=== PATIENT | female | born 1940 | race Caucasian/White ===

== ENCOUNTER 2019-12-27 16:58 | Inpatient (IN) | payer MEDICARE, BC ==
[2019-12-27] MEDS ORDERED: Senokot S 8.6-50 MG TAB PO PRN (20:03)
[2019-12-27] MEDS ORDERED: Calcium Carbonate 500 MG ChewTAB PO PRN (20:03)
[2019-12-27] MEDS: Sodium Chloride 1 GM TAB PO SCH (21:17)
[2019-12-27] MEDS: Sotalol HCl 80 MG TAB PO SCH (21:17)
[2019-12-27] MEDS: Atorvastatin Calcium 20 MG TAB PO SCH ×2 (21:17→21:18)
[2019-12-27] MEDS: oxyCODONE 5 MG TAB PO SCH (21:18)
[2019-12-27] MEDS: Magnesium Oxide 400 MG TAB PO SCH (21:18)
[2019-12-27] MEDS: Heparin 5,000 UNITS/ML VIAL SC SCH (21:28)
[2019-12-28] MEDS: oxyCODONE 5 MG TAB PO SCH ×4 (01:44→12:41)
[2019-12-28] MEDS: Heparin 5,000 UNITS/ML VIAL SC SCH ×3 (05:39→22:53)
[2019-12-28 06:37] LABS: #Basophils 0.1 thou/uL (0.0-0.2); #Eosinphils 0.1 thou/uL (0.0-0.7); #Lymphocytes 0.8 thou/uL (1.20-3.40); #Monocytes 0.5 thou/uL (0.11-0.59); #Neutrophils 2.8 thou/uL (1.40-6.50); %Basophils 1.3 % (0.0-1.0); %Eosinophils 3.3 % (0.0-10.0); %Lymphocytes 19.5 % (21.0-51.0); %Monocytes 11.7 % (0.0-10.0); %Neutrophils 64.2 % (42.0-75.0); Hemoglobin 10.7 g/dL (12.0-16.0); Mean Corpuscular HGB CONC 33.3 g/dL (32.0-36.0); Mean Corpuscular Hemoglobin 29.7 pg (27.0-31.0); Mean Corpuscular Volume 89.3 fL (78.0-98.0); Mean Platelet Volume 5.1 fL (7.4-10.4); Platelet Count 266 thou/uL (130-400); RBC Distribution Width 14.6 % (11.5-14.5); Red Blood Cell (RBC) Count 3.61 mill/uL (4.20-5.40); White Blood Cell (WBC) Count 4.3 thou/uL (4.8-10.8)
[2019-12-28 06:51] LABS: ALT (SGPT) 13 U/L (8-55); AST (SGOT) 15 U/L (5-34); Albumin 3.2 g/dL (3.4-4.8); Alkaline Phosphatase 80 U/L (40-110); Anion Gap 14 mmol/L (10-20); BUN (Urea Nitrogen) 9 mg/dL (9.8-20.1); Bilirubin, Total 1.1 mg/dL (0.2-1.2); Calc. Creatinine Clearance 59 mL/min (70-130); Calcium 8.7 mg/dL (7.8-10.44); Carbon Dioxide 26 mmol/L (23-31); Chloride 98 mmol/L (98-107); Estimated GFR-MDRD Greater than 90; Globulin 2.8 g/dL (2.4-3.5); Glucose 99 mg/dL (83-110); Potassium 4.3 mmol/L (3.5-5.1); Sodium 134 mmol/L (136-145)
[2019-12-28] MEDS: Magnesium Oxide 400 MG TAB PO SCH ×2 (08:15→22:32)
[2019-12-28] MEDS: Sodium Chloride 1 GM TAB PO SCH ×2 (08:15→22:26)
[2019-12-28] MEDS: Sotalol HCl 80 MG TAB PO SCH ×2 (08:15→22:28)
[2019-12-28] MEDS: Aspirin 81 mg Enteric Coated Tablet PO SCH (08:15)
[2019-12-28] MEDS: Lidocaine 5% Patch TD SCH (08:16)
[2019-12-28] MEDS: Citalopram 20 MG TAB PO SCH (08:16)
[2019-12-28] MEDS: Digoxin 0.125 MG TAB PO SCH (08:17)
[2019-12-28 11:47] LABS: Bilirubin Negative (Negative); Blood, Urine Negative (Negative); Clarity Clear (Clear); Glucose, Urine (Dipstick) Negative (Negative); Leukocyte Trace (Negative); Nitrite Negative (Negative); Protein, Urine (Dipstick) Negative (Neg-Trace); Urobilinogen 0.2 mg/dL (Less than 2)
[2019-12-28 11:58] LABS: Bacteria/HPF None Seen HPF (None Seen); RBC/HPF 0-3 HPF (0-3); Squamous Epithelial 0-3 HPF (0-3)
--- NOTE | 2019-12-28 15:34 | HP ---
HISTORY OF PRESENT ILLNESS: Ms. Holliday is a very pleasant 79-year-old white female, who fell and had a C1-C2 fracture. She was placed in a neck brace and was doing well for several weeks until she fell again. This time she was transferred to [facility] for C1-C2 posterior lamination which was done on 12/19/2019. Postoperatively, she did very well, but she has had some problems with pain management. She is now transferred to [facility] for physical therapy and occupational therapy. The patient states she normally takes oxycodone 10 mg 2 to 3 to 4 times a day for her terrible arthritis and is followed by Dr. Foster Arndt. She is also followed by Dr. Hatfield and Dr. Gray. Since she has been in the hospital, her pain has not been well controlled because she gets 5 mg two or three times a day. She is also having some lightning type strikes that are going down her neck, which is either neurological neuropathy type pain or possible muscle spasms. We will try some gabapentin and possibly a muscle relaxer. PAST MEDICAL HISTORY: Positive for, 1. Hypertension. 2. Hyperlipidemia. 3. Coronary artery disease. 4. Peripheral arterial disease. 5. Atrial fibrillation. 6. TIA in May of 2019. 7. Anemia, which is blood loss anemia from surgery. 8. Metabolic encephalopathy. 9. Urinary tract infection. 10. Pain management. PAST SURGICAL HISTORY: Positive for, 1. CABG x2 in 1983. 2. Pacemaker in 2010. 3. Total right knee in 2010. 4. Total left knee in 2011. 5. Bilateral cataracts. 6. C1-C2 laminectomy. SOCIAL HISTORY: Reveals the patient is . She does not smoke and does not drink alcohol. She is retired from working at the medical school at [employer] and . FAMILY HISTORY: Reveals the patient's father at age 49 of some type of accident. The patient's mother at age 69 of coronary artery disease. The patient has 4 brothers who have of heart disease and stroke, and she had 3 sisters and has only one sister left, two have of stroke and heart disease. Family history is positive for heart disease and stroke. PRESENT MEDICATIONS: Reveals the patient is on, 1. Aspirin 81 mg a day. 2. Heparin 5000 units subcu q.8. 3. Diltiazem 60 mg q.8 hours. 4. Sotalol 80 mg b.i.d. 5. Digoxin 0.125 q.a.m. 6. Atorvastatin 20 mg at bedtime. 7. Sodium chloride 2 g twice a day. 8. Celexa 40 mg daily. 9. Pantoprazole 40 mg every day. 10. Mag-Ox 200 mg b.i.d. 11. Lidoderm patch every 12 hours. 12. Oxycodone 5 mg q.4 hours, but the patient typically takes 10 mg 2 to 3 times a day. 13. Senokot-S 2 pills twice a day. ALLERGIES: THE PATIENT IS ALLERGIC TO PENICILLIN, SULFA, AND LINEZOLID. REVIEW OF SYSTEMS: CONSTITUTIONAL: Reveals the patient denies fever or chills, but just has weakness. SKIN: The patient denies skin problems. RESPIRATORY: The patient denies respiratory problems including shortness of breath, cough, cold, congestion, or dyspnea on exertion. CARDIOLOGY: The patient denies chest pain, dyspnea on exertion, edema, claudication, or palpitations. GI: The patient denies GI problems including nausea, vomiting, indigestion, but she does have a poor diet. She denies any constipation or diarrhea or bloody stools. : The patient denies dysuria, hematuria, or incontinence, but she has had a urinary tract infection recently and she has finished all her IV antibiotics. MUSCULOSKELETAL: She does have some musculoskeletal neck pain that aggravates her and possibly some neuropathy type pain also. Her neck is stiff, but it is in a C-collar. PSYCHIATRIC: The patient has some depression, has been on Celexa, which has worked well for her in the past. Her memory occasionally is poor, but on the average is excellent. The patient has had some anemia. PHYSICAL EXAMINATION: GENERAL: This is a well-developed, well-nourished, very thin, white female, in no apparent distress at this time. VITAL SIGNS: Reveal blood pressure 141/67, pulse 80, respirations 16, O2 saturation 97% on room air, T-max 97.5. HEENT: Normocephalic and nontraumatic cranium. Pupils equally round and reactive. Extraocular movements are intact. Nose and throat are slightly dry. NECK: Supple without masses, nodes, or bruits. CHEST: Clear to auscultation. No rales, no rhonchi, no wheezes are noted. Pacemaker is noted in place and not movable. HEART: Reveals a regular rate and rhythm without murmurs, gallops, or rubs. ABDOMEN: Slightly protuberant, soft, nontender without organomegaly. Normal bowel sounds are noted in all 4 quadrants. The patient does admit to having gallstones in the gallbladder, but has not been operated on. : Reveals no Kwok intact, grossly within normal limits. EXTREMITIES: Reveal no clubbing, cyanosis, or edema. The patient has had bilateral knee surgeries and those are well healed for many years. NEUROLOGIC: The patient is intact. Cranial nerves 2 through 12 are intact. Orientation moses, the patient is oriented to person and place, time, and situation. ASSESSMENT: 1. Pain management will be #1 in our list because the patient is not under good control. 2. Coronary artery disease. 3. Hypertension. 4. Hyperlipidemia. 5. Atrial fibrillation, only on heparin at this time, but typically Dr. Arndt, her primary care doctor has taken off anticoagulants because of her multiple falls. 6. Anemia. 7. Metabolic encephalopathy which is stabilized and resolved. 8. Urinary tract infection. PLAN: 1. The first thing will be increase oxycodone to 10 mg q.i.d. p.r.n. 2. We will add some gabapentin 100 mg t.i.d. 3. We will add a Flexeril 5 mg t.i.d. p.r.n. muscle spasms. 4. We will continue to follow the patient closely, see how she does. Job ID: [id number]
[2019-12-28] MEDS: oxyCODONE 5 MG TAB PO PRN ×2 (16:45→22:26)
[2019-12-28] MEDS: Gabapentin 100 MG CAP PO SCH ×2 (16:53→22:26)
[2019-12-28] MEDS: Lidocaine Patch Removal 1 EACH TOP SCH (22:52)
[2019-12-28] MEDS: Atorvastatin Calcium 20 MG TAB PO SCH (22:53)
[2019-12-29] MEDS: Heparin 5,000 UNITS/ML VIAL SC SCH ×3 (05:27→21:02)
[2019-12-29] MEDS: Sodium Chloride 1 GM TAB PO SCH ×2 (08:41→21:03)
[2019-12-29] MEDS: Aspirin 81 mg Enteric Coated Tablet PO SCH (08:41)
[2019-12-29] MEDS: Lidocaine 5% Patch TD SCH (08:41)
[2019-12-29] MEDS: Magnesium Oxide 400 MG TAB PO SCH ×2 (08:42→21:04)
[2019-12-29] MEDS: Digoxin 0.125 MG TAB PO SCH (08:43)
[2019-12-29] MEDS: Sotalol HCl 80 MG TAB PO SCH ×2 (08:44→21:02)
[2019-12-29] MEDS: Citalopram 20 MG TAB PO SCH (08:44)
[2019-12-29] MEDS: Gabapentin 100 MG CAP PO SCH ×4 (08:45→21:04)
[2019-12-29] MEDS: oxyCODONE 5 MG TAB PO PRN ×2 (08:53→21:03)
[2019-12-29] MEDS ORDERED: Gabapentin 100 MG CAP PO SCH (09:00)
--- NOTE | 2019-12-29 18:04 | PRG ---
DATE OF SERVICE: 12/29/2019 SUBJECTIVE: Ms. Holliday is an 79-year-old white female, who fell and had a C1-C2 fracture. She was placed in a neck brace, was doing well until several weeks ago she fell again. At this time, she had to be transferred to [facility] for C1-C2 posterior laminectomy, which was done on 12/19/2019. Postoperatively, she did well, but has had problems with pain management. She is now transferred to [facility] for physical therapy and occupational therapy and pain management. The patient is describing musculoskeletal and radiculopathy type pain. She states she typically takes oxycodone 10 mg two or three or four pills times a day. She continues to have terrible pain. Yesterday, we decided to continue her home regimen, but add gabapentin 100 mg q.i.d. and Flexeril 5 mg t.i.d. p.r.n. muscle spasms. This morning, she was somewhat sleepy, but states she slept all night long and her pain was much improved. OBJECTIVE: VITAL SIGNS: Today reveal blood pressure this morning somewhat low at 92/59, total max of 117/65. Pulse was 79 to 92, and respirations 16. The patient was on room air. GENERAL: This is a well-developed, well-nourished 79-year-old white female, in no apparent distress at this time. HEENT: Reveals normocephalic and nontraumatic cranium. Pupils are equally round and reactive. Extraocular movements are intact. Nose and throat are dry. NECK: Supple without masses, nodes, or bruits. CHEST: Clear to auscultation. No rales, rhonchi, or wheezes are heard today. Pacemaker noted in chest wall. HEART: Reveals a regular rate and rhythm without murmurs, gallops, or rubs. ABDOMEN: Still protuberant, soft, and nontender without organomegaly. Normal bowel sounds noted in all 4 quadrants. : Reveals Kwok intact. EXTREMITIES: Reveal no clubbing, cyanosis, or edema. The patient has had bilateral knee surgery, well healed. NEUROLOGIC: The patient's cranial nerves 2 through 12 are intact. The patient states she feels much improved, but she is somewhat tired and sleepy this morning. ASSESSMENT: 1. Pain management. The patient had an addition of gabapentin 100 mg q.i.d. and cyclobenzaprine 5 mg t.i.d. p.r.n. severe muscle spasm. 2. She actually did very well, but she is getting now too much oxycodone. We will decrease that to a 5 mg pill q.6 hours p.r.n. 3. Coronary artery disease. 4. Hypertension. 5. Hyperlipidemia. 6. Atrial fibrillation, presently on heparin, but previously on no anticoagulants because of her multiple falls. 7. Anemia. 8. Metabolic encephalopathy, stabilized. 9. Urinary tract infection. PLAN: 1. Decrease the patient's oxycodone to 5 mg q.i.d. p.r.n. 2. Continue gabapentin 100 mg scheduled. 3. Continue Flexeril t.i.d. p.r.n. 4. Follow the patient closely. Job ID: [id number]
[2019-12-29] MEDS: Cyclobenzaprine 10 MG TAB PO PRN (21:03)
[2019-12-29] MEDS: Atorvastatin Calcium 20 MG TAB PO SCH (21:04)
[2019-12-29] MEDS: Lidocaine Patch Removal 1 EACH TOP SCH (21:06)
[2019-12-30] MEDS: Heparin 5,000 UNITS/ML VIAL SC SCH ×3 (05:59→21:33)
[2019-12-30] MEDS: Cyclobenzaprine 10 MG TAB PO PRN ×2 (09:04→21:42)
[2019-12-30] MEDS: oxyCODONE 5 MG TAB PO PRN ×3 (09:05→21:51)
[2019-12-30] MEDS: Aspirin 81 mg Enteric Coated Tablet PO SCH (09:06)
[2019-12-30] MEDS: Sotalol HCl 80 MG TAB PO SCH ×2 (09:09→21:42)
[2019-12-30] MEDS: Gabapentin 100 MG CAP PO SCH ×4 (09:09→21:43)
[2019-12-30] MEDS: Magnesium Oxide 400 MG TAB PO SCH ×2 (09:10→21:43)
[2019-12-30] MEDS: Sodium Chloride 1 GM TAB PO SCH ×2 (09:11→21:42)
[2019-12-30] MEDS: Digoxin 0.125 MG TAB PO SCH (09:11)
[2019-12-30] MEDS: Lidocaine 5% Patch TD SCH (09:11)
[2019-12-30] MEDS: Citalopram 20 MG TAB PO SCH (09:11)
--- NOTE | 2019-12-30 17:16 | PRG ---
DATE OF SERVICE: 12/30/2019 SUBJECTIVE: Ms. Holliday is an 79-year-old white female, who fell and had a C1-C2 fracture. She was placed in a neck brace, did well until she fell again. This time, she refractured and had to be transferred to [facility] for C1-C2 posterior laminectomy. This was done on 12/19/2019. Postoperatively, she did well, but had problem with pain management. She was transferred to [facility] for physical therapy, occupational therapy, and pain management. The patient states she is doing well, but states she is having more muscle cramps and muscle pain, but states that she is not taking her cyclobenzaprine 5 mg. Otherwise, the patient states she is doing well and slept really well last night. OBJECTIVE: VITAL SIGNS: Today reveal blood pressure 152/80 and 139/65. The patient did refuse her diltiazem this morning because she thought her blood pressure was too low. Pulse is 80, respirations 16, O2 saturation 96% on room air, T-max 97.1. GENERAL: This is a well-developed, well-nourished, elderly white female, in no apparent distress at this time. HEENT: Normocephalic and nontraumatic cranium. Pupils are equally round and reactive. Extraocular movements are intact. Nose and throat are slightly dry. NECK: Supple without masses, nodes, or bruits. CHEST: Clear to auscultation. No rales, rhonchi, wheezes, or cough is heard today. Pacemaker noted in the chest wall. HEART: Reveals a regular rate and rhythm without murmurs, gallops, or rubs. ABDOMEN: Soft, nontender without organomegaly. Protuberant. Normal bowel sounds noted in all 4 quadrants. No rebound or guarding is noted. : Reveals Kwok intact. EXTREMITIES: Reveal no clubbing, cyanosis, or edema. The patient has bilateral knee surgeries, which are both well healed. NEUROLOGIC: The patient has cranial nerves 2 through 12 intact. The patient states she feels improved, tired, sleepy, and little achy with some muscle spasm. ASSESSMENT: 1. Pain management. The patient has gabapentin 100 mg q.i.d. scheduled, cyclobenzaprine 5 mg t.i.d. p.r.n. The patient is also down to oxycodone 5 mg q.6 hours p.r.n. 2. Coronary artery disease. 3. Hypertension. 4. Hyperlipidemia. 5. Atrial fibrillation, presently on heparin, but previously not on any anticoagulants because of her multiple falls. 6. Anemia. 7. Metabolic encephalopathy, stabilized. 8. Urinary tract infection. PLAN: 1. Continue oxycodone 5 mg q.i.d. p.r.n. 2. Continue Flexeril 5 mg t.i.d. p.r.n. 3. Continue gabapentin 100 mg q.i.d. scheduled. 4. Stress ulcer prophylaxis. 5. Decubitus precautions. 6. DVT prophylaxis per primary service. 7. Continue to follow the patient's blood pressure closely and adjust as needed. 8. Continue to follow the patient's heart rhythm. 9. Continue to monitor the patient for renal and anemia indices. Job ID: [id number]
[2019-12-30] MEDS: Atorvastatin Calcium 20 MG TAB PO SCH (21:42)
[2019-12-30] MEDS: Lidocaine Patch Removal 1 EACH TOP SCH (21:43)
[2019-12-31] MEDS: Heparin 5,000 UNITS/ML VIAL SC SCH ×3 (06:00→20:49)
[2019-12-31] MEDS: Sotalol HCl 80 MG TAB PO SCH ×2 (09:01→20:51)
[2019-12-31] MEDS: Sodium Chloride 1 GM TAB PO SCH ×2 (09:01→20:51)
[2019-12-31] MEDS: Lidocaine 5% Patch TD SCH (09:01)
[2019-12-31] MEDS: Aspirin 81 mg Enteric Coated Tablet PO SCH (09:02)
[2019-12-31] MEDS: Magnesium Oxide 400 MG TAB PO SCH ×2 (09:02→20:50)
[2019-12-31] MEDS: Citalopram 20 MG TAB PO SCH (09:03)
[2019-12-31] MEDS: Digoxin 0.125 MG TAB PO SCH (09:03)
[2019-12-31] MEDS: Gabapentin 100 MG CAP PO SCH ×4 (09:03→20:51)
[2019-12-31] MEDS: oxyCODONE 5 MG TAB PO PRN ×3 (09:10→20:49)
[2019-12-31] MEDS: Atorvastatin Calcium 20 MG TAB PO SCH (20:49)
[2019-12-31] MEDS: Cyclobenzaprine 10 MG TAB PO PRN (20:51)
[2019-12-31] MEDS: Lidocaine Patch Removal 1 EACH TOP SCH (20:51)
[2020-01-01] MEDS: Heparin 5,000 UNITS/ML VIAL SC SCH ×3 (06:06→21:22)
[2020-01-01] MEDS: Sotalol HCl 80 MG TAB PO SCH ×2 (08:34→21:23)
[2020-01-01] MEDS: Sodium Chloride 1 GM TAB PO SCH ×2 (08:34→21:25)
[2020-01-01] MEDS: Digoxin 0.125 MG TAB PO SCH (08:37)
[2020-01-01] MEDS: Citalopram 20 MG TAB PO SCH (08:37)
[2020-01-01] MEDS: Magnesium Oxide 400 MG TAB PO SCH ×2 (08:37→21:24)
[2020-01-01] MEDS: Gabapentin 100 MG CAP PO SCH ×4 (08:37→21:25)
[2020-01-01] MEDS: Aspirin 81 mg Enteric Coated Tablet PO SCH (08:38)
[2020-01-01] MEDS: oxyCODONE 5 MG TAB PO PRN ×3 (08:38→21:24)
[2020-01-01] MEDS: Lidocaine 5% Patch TD SCH (08:39)
--- NOTE | 2020-01-01 17:26 | PRG ---
DATE OF SERVICE: 12/31/2019 SUBJECTIVE: Ms. Holliday is resting in bed and denies any complaints except she feels like she is getting weaker. She is wondering if it may be due to her muscle relaxant. I advised her that I can certainly change it to p.r.n. instead of scheduled. She states that the gabapentin is really helping. OBJECTIVE: VITAL SIGNS: She is afebrile. Heart rate 83, respirations 18, oxygen saturation 93% on room air, and blood pressure 151/70. CARDIOVASCULAR: S1 and S2 plus. RESPIRATORY: Normal vesicular breath sounds. ABDOMEN: Soft and nontender. Bowel sounds heard all quadrants. EXTREMITIES: Without cyanosis or clubbing. CENTRAL NERVOUS SYSTEM: Improving weakness, she thinks it is fluctuating. IMPRESSION: 1. Coronary artery disease. 2. Hypertension. 3. Dyslipidemia. 4. Atrial fibrillation. 5. Deconditioning. 6. Chronic pain. PLAN: 1. Continue current medication. 2. I reviewed her medication to check on her muscle relaxant. She is already on Flexeril only t.i.d. as needed and not scheduled. 3. Heart-healthy diet. 4. Monitor heart rate and rhythm. 5. DVT prophylaxis, she is on heparin subcu. 6. Decubitus precaution. 7. Stress ulcer prophylaxis. 8. Routine laboratory values. 9. Therapy. 10. Spinal precautions. Job ID: [id number]
--- NOTE | 2020-01-01 17:57 | PRG ---
DATE OF SERVICE: 01/01/2020 SUBJECTIVE: Ms. Holliday is doing the same. She states that she only took her Flexeril once, but still felt sleepy. I advised her that she may try just not taking it at all and see if that helps. No other concerns or questions. OBJECTIVE: VITAL SIGNS: She is afebrile. Heart rate 76, respirations 20, oxygen saturation 93% on room air, blood pressure 164/80. CARDIOVASCULAR SYSTEM: S1, S2 plus. RESPIRATORY SYSTEM: Normal vesicular breath sounds. ABDOMEN: Soft, nontender. Bowel sounds in all quadrants. EXTREMITIES: Without cyanosis, clubbing. CENTRAL NERVOUS SYSTEM: Generalized weakness. She does have hard cervical collar in place. IMPRESSION: 1. Status post cervical laminectomy. 2. Hypertension. 3. Dyslipidemia. 4. Atrial fibrillation. 5. Deconditioning. 6. Chronic pain. PLAN: 1. Continue current medications, but advised her to not take the Flexeril if possible and see if that helps with her somnolence and weakness. 2. Heart healthy diet. 3. Monitor heart rate and rhythm. 4. Continue spinal precautions. 5. DVT prophylaxis with heparin. 6. Decubitus precaution. 7. Stress ulcer prophylaxis. 8. Physical therapy. 9. Dr. Patrice peoples [facility]. Job ID: [id number]
[2020-01-01] MEDS: Atorvastatin Calcium 20 MG TAB PO SCH (21:23)
[2020-01-01] MEDS: Lidocaine Patch Removal 1 EACH TOP SCH (21:25)
[2020-01-02] MEDS: Heparin 5,000 UNITS/ML VIAL SC SCH ×3 (05:14→21:19)
[2020-01-02] MEDS: oxyCODONE 5 MG TAB PO PRN ×3 (05:53→21:21)
[2020-01-02] MEDS: Sotalol HCl 80 MG TAB PO SCH ×2 (09:52→21:21)
[2020-01-02] MEDS: Gabapentin 100 MG CAP PO SCH ×4 (09:52→21:19)
[2020-01-02] MEDS: Aspirin 81 mg Enteric Coated Tablet PO SCH (09:52)
[2020-01-02] MEDS: Magnesium Oxide 400 MG TAB PO SCH ×2 (09:53→21:20)
[2020-01-02] MEDS: Citalopram 20 MG TAB PO SCH (09:53)
[2020-01-02] MEDS: Sodium Chloride 1 GM TAB PO SCH ×2 (09:54→21:20)
[2020-01-02] MEDS: Digoxin 0.125 MG TAB PO SCH (09:54)
[2020-01-02] MEDS: Lidocaine 5% Patch TD SCH (09:55)
--- NOTE | 2020-01-02 10:24 | PRG ---
DATE OF SERVICE: 01/02/2020 SUBJECTIVE: Ms. Holliday is a well-developed 79-year-old white female, who comes in to the hospital after having a C1-C2 posterior laminectomy done at [facility], that was done on 12/19/2019. Postoperatively, she had significant pain problems. She was transferred here to [facility] for physical therapy, occupational therapy, and pain management. The patient states she is doing well, but she feels a little too sedated on her cyclobenzaprine 5 mg, so she is stopping that. The patient otherwise has no concerns or complaints. States she is doing well. OBJECTIVE: VITAL SIGNS: Reveal blood pressure this morning 156/75, pulse 80, respirations 20, O2 saturation 95% on room air, T-max 97.2. GENERAL: This is a well-developed, well-nourished, very pleasant 79-year-old white female, in no apparent distress at this time. HEENT: Normocephalic and nontraumatic cranium. Pupils equally round and reactive. Extraocular movements are intact. Nose and throat are slightly dry. NECK: Supple without masses, nodes, or bruits. CHEST: Clear to auscultation. No rales, rhonchi, or wheezes are heard. HEART: Reveals a regular rate and rhythm without murmurs, gallops, or rubs. ABDOMEN: Soft, nontender, scaphoid, without organomegaly. Normal bowel sounds are noted. No rebound or guarding is noted. : Reveals Kwok intact. EXTREMITIES: Reveal no clubbing, cyanosis, or edema. The patient has bilateral knee surgeries in the past. NEUROLOGIC: The patient has cranial nerves 2 through 12 intact. The patient states she is doing better and feels better every day. ASSESSMENT: 1. Pain management. The patient is on gabapentin 100 mg scheduled q.i.d. and the patient is on oxycodone 5 mg q.6 hours p.r.n. 2. Coronary artery disease. 3. Status post C1-C2 posterior laminectomy. 4. Hypertension. 5. Hyperlipidemia. 6. Atrial fibrillation, presently on heparin. 7. Anemia. 8. Metabolic encephalopathy, stabilized. 9. Urinary tract infection. PLAN: 1. She has stopped her Flexeril t.i.d. p.r.n., but we will keep it on the books in case she needs it. 2. Oxycodone 5 mg q.i.d. p.r.n. 3. Continue gabapentin 100 mg scheduled q.i.d. 4. Stress ulcer prophylaxis. 5. Decubitus precautions. 6. DVT prophylaxis. 7. Continue to follow the patient's blood pressure closely and adjust medications as needed. 8. Continue to follow the patient's heart rhythm. 9. Monitor the patient for renal anemia indices. 10. Continue physical therapy and occupational therapy. Job ID: [id number]
[2020-01-02] MEDS: Atorvastatin Calcium 20 MG TAB PO SCH (21:21)
[2020-01-02] MEDS: Lidocaine Patch Removal 1 EACH TOP SCH (21:27)
[2020-01-03] MEDS: Heparin 5,000 UNITS/ML VIAL SC SCH ×3 (05:39→20:56)
[2020-01-03] MEDS: Aspirin 81 mg Enteric Coated Tablet PO SCH (08:31)
[2020-01-03] MEDS: Sodium Chloride 1 GM TAB PO SCH ×2 (08:32→20:41)
[2020-01-03] MEDS: Gabapentin 100 MG CAP PO SCH ×4 (08:34→20:42)
[2020-01-03] MEDS: Magnesium Oxide 400 MG TAB PO SCH ×2 (08:35→20:41)
[2020-01-03] MEDS: Sotalol HCl 80 MG TAB PO SCH ×2 (08:37→08:39)
[2020-01-03] MEDS: Digoxin 0.125 MG TAB PO SCH (08:38)
[2020-01-03] MEDS: Citalopram 20 MG TAB PO SCH (08:39)
[2020-01-03] MEDS: oxyCODONE 5 MG TAB PO PRN ×3 (08:40→20:42)
[2020-01-03] MEDS: Lidocaine 5% Patch TD SCH (08:46)
--- NOTE | 2020-01-03 10:51 | PRG ---
DATE OF SERVICE: 01/03/2020 SUBJECTIVE: Ms. Holliday is a very thin 79-year-old white female, who fell and had a resultant C1-C2 neck fracture. She was placed in a splint and was doing well until she fell again and this time refractured. She was transferred to [facility] and had a C1-C2 posterior laminectomy done. This was done on 12/19/2019. Postoperatively, she was stabilized and eventually transferred to [facility] for physical therapy, occupational therapy, and pain management. The patient states she stills feels sleepy on whatever medications, most likely is gabapentin along with oxycodone. She is not taking cyclobenzaprine at this time, although, she may need to take it for occasional muscle spasms. Otherwise, the patient is pleased and states she is doing well. OBJECTIVE: VITAL SIGNS: Reveal blood pressure 155/69 to 135/69, pulse 79 to 84, respirations 16, O2 saturation 95% on room air, T-max 98.3. GENERAL: This is a well-developed, well-nourished, thin white female, in no apparent distress at this time. HEENT: Reveals normocephalic and nontraumatic cranium. Pupils are equally round and reactive. Extraocular movements are intact. Nose and throat are slightly dry. NECK: Supple without masses, nodes, or bruits. CHEST: Clear to auscultation. No rales, rhonchi, wheezes, or cough is heard. HEART: Reveals a regular rate and rhythm without murmurs, gallops, or rubs. ABDOMEN: Soft, somewhat protuberant, nontender without organomegaly. Normal bowel sounds noted in all 4 quadrants. No rebound or guarding is noted. : Reveals Kwok intact. EXTREMITIES: Reveal no clubbing, cyanosis, or edema. NEUROLOGIC: Cranial nerves reveal no focal deficits. ASSESSMENT: 1. Pain management. The patient will continue gabapentin scheduled q.i.d. along with p.r.n. oxycodone 5 mg q.6 hours p.r.n. 2. Hypertension. 3. Coronary artery disease. 4. Hyperlipidemia. 5. Status post C1-C2 posterior laminectomy done in [place]. 6. Atrial fibrillation, presently on heparin. 7. Anemia. 8. Metabolic encephalopathy. 9. Urinary tract infection. PLAN: 1. Oxycodone 5 mg q.i.d. p.r.n. 2. Gabapentin 100 mg scheduled q.i.d. 3. Stress ulcer prophylaxis. 4. Decubitus precautions. 5. DVT prophylaxis. 6. Continue to follow the patient and monitor the patient's blood pressure closely. Adjust medications as needed. 7. Continue to follow the patient's heart rate. 8. Monitor the patient for renal and anemia indices. 9. Continue PT and OT. Job ID: [id number]
[2020-01-03] MEDS: Atorvastatin Calcium 20 MG TAB PO SCH (20:42)
[2020-01-03] MEDS: Lidocaine Patch Removal 1 EACH TOP SCH (20:56)
[2020-01-03] MEDS: Cyclobenzaprine 10 MG TAB PO PRN (20:56)
[2020-01-04] MEDS: Heparin 5,000 UNITS/ML VIAL SC SCH ×3 (05:29→21:20)
[2020-01-04] MEDS: oxyCODONE 5 MG TAB PO PRN ×3 (07:52→17:31)
[2020-01-04] MEDS: Lidocaine 5% Patch TD SCH (07:54)
[2020-01-04] MEDS: Aspirin 81 mg Enteric Coated Tablet PO SCH (07:55)
[2020-01-04] MEDS: Magnesium Oxide 400 MG TAB PO SCH ×3 (07:55→21:19)
[2020-01-04] MEDS: Sodium Chloride 1 GM TAB PO SCH ×2 (07:55→21:19)
[2020-01-04] MEDS: Gabapentin 100 MG CAP PO SCH ×4 (07:55→21:18)
[2020-01-04] MEDS: Digoxin 0.125 MG TAB PO SCH (07:56)
[2020-01-04] MEDS: Citalopram 20 MG TAB PO SCH (07:56)
[2020-01-04] MEDS: Sotalol HCl 80 MG TAB PO SCH ×2 (07:57→21:19)
[2020-01-04] MEDS ORDERED: oxyCODONE 5 MG TAB PO PRN (18:46)
--- NOTE | 2020-01-04 19:17 | PRG ---
DATE OF SERVICE: 01/04/2020 SUBJECTIVE: The patient is an 79-year-old white female, who unfortunately fell with a resultant C1 and C2 fracture. She was evaluated by Neurosurgery, placed in a cervical collar and transferred to rehab. She fell again and sent back to the hospital, re-evaluated, sent down to [place] to Dr. Wai Lobo, who did a C1-C2 posterior laminectomy at [facility] in [place]. Postoperatively, the patient was sent here for pain management and for physical therapy and occupational therapy. The patient has multiple complaints today. 1. She states that her pain medicines are not working. 2. She would like a heating pad for her neck. 3. She has swelling in her feet. 4. She does know she is supposed to be taking Cardizem 3 times a day or twice a day. 5. She does not like taking her salt pills. 6. She has panic attacks. 7. She is blue and sad, has been on Celexa long time, thinks she may need to change. 8. She is not sure about taking gabapentin. 9. She took Flexeril last night and said it did not help her sleep. 10. She does know she is supposed to go see Dr. Lobo on Thursday back in [place] for a followup or not. While in her room, I discussed all of these areas for a significant amount of time. OBJECTIVE: VITAL SIGNS: Today reveal blood pressure 150/65, pulse 79 to 80, respirations 16, O2 saturation 96% on room air, and T-max 98. GENERAL: This is a well-developed, well-nourished, very persistent 79-year-old white female, has multiple complaints today. HEENT: Reveals normocephalic and nontraumatic cranium. Pupils are equally round and reactive. Extraocular movements are intact. Nose and throat are dry. NECK: Supple without masses, nodes, or bruits. CHEST: Clear to auscultation. No rales, rhonchi, wheezes, or cough are heard. HEART: Reveals a regular rate and rhythm without murmurs, gallops, or rubs. ABDOMEN: Soft, protuberant, nontender without organomegaly. Normal bowel sounds are noted in all 4 quadrants. No rebound or guarding is noted. : Deferred. EXTREMITIES: Reveal no clubbing, cyanosis. Trace edema. NEUROLOGIC: Cranial nerves reveal no focal deficits. ASSESSMENT: 1. Pain management. We will continue the patient on oxycodone 5 mg q.6 hours, but we will give her 10 mg every morning to get her pain under better control. 2. Continue gabapentin scheduled at 100 mg three times a day and 200 mg at bedtime. 3. Continue to monitor the patient's blood pressure. 4. Coronary artery disease. 5. Hyperlipidemia. 6. Status post C1-C2 posterior laminectomy done in [place] at [facility], Dr. Wai Lobo. 7. Atrial fibrillation, presently on heparin. 8. Anemia. 9. Metabolic encephalopathy. 10. Urinary tract infection. PLAN: 1. Continue oxycodone 5 mg q.i.d., but give the morning dose a 10 mg pill. 2. Continue gabapentin 100 mg t.i.d. and give her 200 mg at bedtime. 3. Stress ulcer prophylaxis. 4. Decubitus precautions. 5. DVT prophylaxis. 6. Continue to follow the patient and monitor the patient's blood pressure closely. 7. The patient is asking about lorazepam, taking it along with all the other medications. I told her we will adjust her medications without that. 8. Continue to follow the patient's heart rate. 9. Monitor the patient's renal status and anemia indices. 10. Continue physical therapy and occupational therapy. I spent more than 45 minutes with the patient on her complaints. Job ID: [id number]
[2020-01-04] MEDS: Atorvastatin Calcium 20 MG TAB PO SCH (21:17)
[2020-01-04] MEDS: Lidocaine Patch Removal 1 EACH TOP SCH (21:18)
[2020-01-04] MEDS: Gabapentin 300 MG CAP PO SCH (21:18)
[2020-01-04] MEDS: Cyclobenzaprine 10 MG TAB PO PRN (21:38)
[2020-01-05 05:41] LABS: #Basophils 0.1 thou/uL (0.0-0.2); #Eosinphils 0.1 thou/uL (0.0-0.7); #Lymphocytes 1.1 thou/uL (1.20-3.40); #Monocytes 0.4 thou/uL (0.11-0.59); #Neutrophils 2.4 thou/uL (1.40-6.50); %Basophils 1.4 % (0.0-1.0); %Eosinophils 3.1 % (0.0-10.0); %Monocytes 8.9 % (0.0-10.0); %Neutrophils 59.6 % (42.0-75.0); Hemoglobin 9.3 g/dL (12.0-16.0); Mean Corpuscular HGB CONC 32.9 g/dL (32.0-36.0); Mean Corpuscular Hemoglobin 29.2 pg (27.0-31.0); Mean Corpuscular Volume 88.9 fL (78.0-98.0); Mean Platelet Volume 4.9 fL (7.4-10.4); Platelet Count 263 thou/uL (130-400); RBC Distribution Width 14.6 % (11.5-14.5); Red Blood Cell (RBC) Count 3.18 mill/uL (4.20-5.40)
[2020-01-05 06:05] LABS: ALT (SGPT) 14 U/L (8-55); AST (SGOT) 17 U/L (5-34); Albumin 3.3 g/dL (3.4-4.8); Alkaline Phosphatase 84 U/L (40-110); Anion Gap 11 mmol/L (10-20); BUN (Urea Nitrogen) 6 mg/dL (9.8-20.1); Bilirubin, Total 0.9 mg/dL (0.2-1.2); Calc. Creatinine Clearance 61 mL/min (70-130); Calcium 8.4 mg/dL (7.8-10.44); Carbon Dioxide 29 mmol/L (23-31); Chloride 98 mmol/L (98-107); Estimated GFR-MDRD Greater than 90; Globulin 2.8 g/dL (2.4-3.5); Glucose 97 mg/dL (83-110); Magnesium 1.6 mg/dL (1.6-2.6); Potassium 3.8 mmol/L (3.5-5.1); Protein, Total 6.1 g/dL (6.0-8.3); Sodium 134 mmol/L (136-145)
[2020-01-05] MEDS: Heparin 5,000 UNITS/ML VIAL SC SCH ×3 (06:10→21:57)
[2020-01-05] MEDS: oxyCODONE 5 MG TAB PO SCH (08:03)
[2020-01-05] MEDS: Sotalol HCl 80 MG TAB PO SCH ×2 (08:05→21:56)
[2020-01-05] MEDS: Magnesium Oxide 400 MG TAB PO SCH ×2 (08:06→21:56)
[2020-01-05] MEDS: Citalopram 20 MG TAB PO SCH (08:07)
[2020-01-05] MEDS: Digoxin 0.125 MG TAB PO SCH (08:08)
[2020-01-05] MEDS: Lidocaine 5% Patch TD SCH (08:08)
[2020-01-05] MEDS: Gabapentin 100 MG CAP PO SCH ×3 (08:09→21:56)
[2020-01-05] MEDS: Aspirin 81 mg Enteric Coated Tablet PO SCH (08:14)
[2020-01-05] MEDS: oxyCODONE 5 MG TAB PO PRN ×2 (12:51→17:57)
[2020-01-05] MEDS: Sodium Chloride 1 GM TAB PO SCH ×2 (12:55→21:57)
--- NOTE | 2020-01-05 19:09 | PRG ---
DATE OF SERVICE: 01/05/2020 SUBJECTIVE: Ms. Holliday is an 79-year-old white female, who unfortunately fell with resultant C1-C2 fracture. She is evaluated by Neurosurgery and placed a cervical collar and transferred to rehab hospital. At the rehab hospital, she fell again. She was sent back to the regular hospital for re-evaluation and was transferred to Dr. Wai Lobo in [place] at [facility]. She states that he did a C1-C2 posterior laminectomy at [facility] in [facility]. Postoperatively, the patient was sent here for physical therapy and occupational therapy and pain management. The patient is a patient of Dr. Foster Arndt. The patient states her pain medicines are still not working, but she thinks a little better. She states she asked for a heating pad, but it was not ordered, but I did order last night. She has less swelling in her feet. We did do her lab work and her sodium is still slightly low at 134, so she will continue her salt pills. She did not complain of any panic attacks last night. We will continue her Celexa. We did increase her gabapentin at bedtime to 200 mg daily. OBJECTIVE: VITAL SIGNS: Today reveal blood pressure 122/71, pulse 87, respirations 16, O2 saturations 94% to 98% on room air, T-max 97.8. GENERAL: This is a well-developed, well-nourished 79-year-old white female, in no apparent distress at this time. HEENT: Normocephalic and nontraumatic cranium. Pupils equally round and reactive. Extraocular movements are intact. Nose and throat are slightly dry. CHEST: Clear to auscultation. No rales, rhonchi, wheezes are heard. HEART: Reveals a regular rate and rhythm without murmurs, gallops, or rubs. ABDOMEN: Soft, nontender without organomegaly. Normal bowel sounds are noted. No rebound or guarding is noted. : Deferred. EXTREMITIES: Reveal no clubbing, cyanosis, or edema. ASSESSMENT: 1. Pain management. Continue present course, may adjust over the weekend. 2. Continue gabapentin 100 mg t.i.d. and 200 mg at bedtime. 3. Continue to monitor the patient's blood pressure closely, adjust medications as needed. 4. Coronary artery disease. 5. Hyperlipidemia. 6. Status post C1-C2 posterior laminectomy done at [place] by Dr. Wai Lobo. 7. Atrial fibrillation, presently on heparin, which is chronic. 8. Anemia. 9. Metabolic encephalopathy. 10. Urinary tract infection. PLAN: 1. Continue present medications. 2. Stress ulcer prophylaxis. 3. Decubitus precautions. 4. Continue to follow the patient. Monitor the patient's blood pressure closely. 5. Follow the patient's heart rate for RVR. 6. Monitor the patient's renal status, anemia, which are slightly less. 7. We will do anemia workup including B12, folic acid, TIBC, ferritin, and iron. 8. Continue PT and OT. Job ID: [id number]
[2020-01-05] MEDS: Gabapentin 300 MG CAP PO SCH (21:56)
[2020-01-05] MEDS: Atorvastatin Calcium 20 MG TAB PO SCH (21:57)
[2020-01-05] MEDS: Lidocaine Patch Removal 1 EACH TOP SCH (22:42)
[2020-01-06] MEDS: Heparin 5,000 UNITS/ML VIAL SC SCH ×3 (06:06→21:53)
[2020-01-06] MEDS: oxyCODONE 5 MG TAB PO SCH (06:07)
[2020-01-06] MEDS: Sotalol HCl 80 MG TAB PO SCH ×2 (08:34→21:52)
[2020-01-06] MEDS: Sodium Chloride 1 GM TAB PO SCH ×2 (08:34→21:53)
[2020-01-06] MEDS: Digoxin 0.125 MG TAB PO SCH (08:35)
[2020-01-06] MEDS: Gabapentin 100 MG CAP PO SCH ×3 (08:35→21:52)
[2020-01-06] MEDS: Citalopram 20 MG TAB PO SCH (08:35)
[2020-01-06] MEDS: Aspirin 81 mg Enteric Coated Tablet PO SCH (08:38)
[2020-01-06] MEDS: Magnesium Oxide 400 MG TAB PO SCH ×2 (08:41→21:52)
[2020-01-06] MEDS: Lidocaine 5% Patch TD SCH (08:43)
[2020-01-06 11:42] LABS: Iron 35 ug/dL (50-170); Iron Binding Capacity, Total 219 mcg/dL (265-497)
[2020-01-06 12:08] LABS: Ferritin 279.25 ng/mL (10-291)
[2020-01-06] MEDS: oxyCODONE 5 MG TAB PO PRN ×2 (12:28→17:03)
--- NOTE | 2020-01-06 18:15 | PRG ---
DATE OF SERVICE: 01/06/2020 SUBJECTIVE: Ms. Holliday is an 79-year-old white female, who unfortunately fell at home. She had a resultant C1-C2 fracture. She was evaluated by Neurosurgery and placed in cervical collar and transferred to rehab. At rehab hospital, unfortunately, she fell again, sent back to regular hospital, re-evaluated, and then transferred to Dr. Wai Lobo in [place] at [facility]. He did a C1-C2 posterior laminectomy at [facility] in [facility]. Postoperatively, the patient did well and was transferred here for physical therapy, occupational therapy, and pain management. This patient is a patient of Dr. Foster Arndt. The patient has no complaints of pain today, but did state that she is scared that she may be sent home too soon. She states she wants to stay here as long as she can because she is afraid if she goes to a nursing care facility, they will keep her isolated for 14 days and she will need to get therapy there. OBJECTIVE: VITAL SIGNS: Today reveal blood pressure 112/65 and 150/67, pulse 80s, respirations 16, O2 saturation 94% on room air, T-max 96.5. GENERAL: This is a well-developed, well-nourished, thin white female, in no apparent distress at this time. HEENT: Normocephalic, nontraumatic cranium. Pupils are equally round and reactive. Extraocular movements are intact. Nose and throat are slightly dry. NECK: Supple without masses, nodes, or bruits. CHEST: Clear to auscultation. No rales, rhonchi, or wheezes are heard. HEART: Reveals an irregular rate and rhythm, which is rate controlled, presently on heparin, which is chronic. Dr. Foster Arndt did pour off all her anticoagulants because of her risk of falling, but while she is in the hospital, she has been on heparin. ABDOMEN: Soft, nontender without organomegaly. Normal bowel sounds are noted. No rebound or guarding is noted. Somewhat protuberant. GENITOURINARY: Exam is deferred. EXTREMITIES: No clubbing, cyanosis, or edema. NEUROLOGIC: The patient is intact x3. ASSESSMENT: 1. Pain management. Continue present course, which is actually stable and she has no complaints of pain today. Continue gabapentin 100 mg t.i.d. and 200 mg at bedtime. Continue to monitor the patient's blood pressure closely and adjust medications as needed. 2. Coronary artery disease. 3. Hyperlipidemia. 4. Status post C1-C2 posterior laminectomy done in [place] by Dr. Wai Lobo. 5. Atrial fibrillation, presently on heparin. 6. Anemia. 7. Metabolic encephalopathy. 8. Urinary tract infection. 9. Laboratories done, revealed her B12 and folic acid are normal, but her iron and TIBC are low. PLAN: 1. Start ferrous gluconate 324 mg daily. 2. Continue other medications presently. 3. Stress ulcer prophylaxis. 4. Decubitus precautions. 5. Continue to follow and monitor the patient's blood pressure closely and adjust medications as needed. 6. Follow the patient's heart rate for RVR. 7. Monitor the patient's renal status, anemia. 8. Continue physical therapy and occupational therapy. Job ID: [id number]
[2020-01-06] MEDS: Gabapentin 300 MG CAP PO SCH (21:52)
[2020-01-06] MEDS: Lidocaine Patch Removal 1 EACH TOP SCH (21:53)
[2020-01-06] MEDS: Atorvastatin Calcium 20 MG TAB PO SCH (21:53)
[2020-01-07] MEDS: Heparin 5,000 UNITS/ML VIAL SC SCH ×3 (06:10→21:44)
[2020-01-07] MEDS: oxyCODONE 5 MG TAB PO SCH (06:10)
[2020-01-07] MEDS: Aspirin 81 mg Enteric Coated Tablet PO SCH (08:50)
[2020-01-07] MEDS: Sodium Chloride 1 GM TAB PO SCH ×2 (08:51→21:42)
[2020-01-07] MEDS: Ferrous Gluconate 324 MG TAB PO SCH (08:54)
[2020-01-07] MEDS: Digoxin 0.125 MG TAB PO SCH (08:55)
[2020-01-07] MEDS: Sotalol HCl 80 MG TAB PO SCH ×2 (08:55→21:42)
[2020-01-07] MEDS: Magnesium Oxide 400 MG TAB PO SCH ×2 (08:56→21:44)
[2020-01-07] MEDS: Citalopram 20 MG TAB PO SCH (08:58)
[2020-01-07] MEDS: Gabapentin 100 MG CAP PO SCH (09:00)
[2020-01-07] MEDS: Lidocaine 5% Patch TD SCH (09:10)
[2020-01-07] MEDS: oxyCODONE 5 MG TAB PO PRN (13:20)
--- NOTE | 2020-01-07 15:05 | PRG ---
DATE OF SERVICE: 01/07/2020 SUBJECTIVE: Ms. Holliday is resting in bed. She states she continues to have the sharp stabbing pain and she is agreeable to increase the gabapentin. OBJECTIVE: VITAL SIGNS: She is afebrile. Heart rate 80, respirations 16, oxygen saturation 94% on room air, blood pressure 141/65. CARDIOVASCULAR: S1 and S2 plus. RESPIRATORY: Normal vesicular breath sounds. ABDOMEN: Soft and nontender. Bowel sounds heard in all quadrants. EXTREMITIES: Without cyanosis or clubbing. CENTRAL NERVOUS SYSTEM: Generalized weakness. IMPRESSION: 1. Cervical fracture, requiring surgical fixation. 2. Hypertension. 3. Dyslipidemia. 4. Coronary artery disease. 5. Possible neuropathic pain. PLAN: 1. Continue current medications. 2. Heart healthy diet. 3. Spinal precautions including brace. 4. Increase Neurontin to 300 mg t.i.d. 5. DVT and stress ulcer prophylaxis. 6. Decubitus precautions. 7. Physical therapy. 8. Routine laboratory values. Job ID: [id number]
[2020-01-07] MEDS: Gabapentin 300 MG CAP PO SCH ×2 (15:46→21:42)
[2020-01-07] MEDS: Atorvastatin Calcium 20 MG TAB PO SCH (21:44)
[2020-01-07] MEDS: Lidocaine Patch Removal 1 EACH TOP SCH (21:44)
[2020-01-08] MEDS: oxyCODONE 5 MG TAB PO SCH (05:31)
[2020-01-08] MEDS: Heparin 5,000 UNITS/ML VIAL SC SCH ×3 (05:32→21:55)
[2020-01-08] MEDS: Citalopram 20 MG TAB PO SCH (08:40)
[2020-01-08] MEDS: Lidocaine 5% Patch TD SCH (08:40)
[2020-01-08] MEDS: Sodium Chloride 1 GM TAB PO SCH ×2 (08:40→21:54)
[2020-01-08] MEDS: Magnesium Oxide 400 MG TAB PO SCH ×2 (08:41→21:54)
[2020-01-08] MEDS: Ferrous Gluconate 324 MG TAB PO SCH (08:41)
[2020-01-08] MEDS: Digoxin 0.125 MG TAB PO SCH (08:41)
[2020-01-08] MEDS: Gabapentin 300 MG CAP PO SCH ×3 (08:41→21:54)
[2020-01-08] MEDS: Aspirin 81 mg Enteric Coated Tablet PO SCH (08:42)
[2020-01-08] MEDS: Sotalol HCl 80 MG TAB PO SCH ×2 (08:42→21:54)
[2020-01-08] MEDS: oxyCODONE 5 MG TAB PO PRN (13:51)
--- NOTE | 2020-01-08 16:51 | PRG ---
DATE OF SERVICE: 01/08/2020 SUBJECTIVE: Ms. Holliday is doing well except she states that she felt really groggy and drowsy. I explained to her that is a pretty common side effect of the gabapentin and that should resolve within a couple of days. She is doing well otherwise. Denies any questions or concerns. OBJECTIVE: VITAL SIGNS: The patient is afebrile, heart rate 91, respirations 18, oxygen saturation 94% on room air, blood pressure 108/54. CARDIOVASCULAR: S1 and S2 plus. RESPIRATORY: Normal vesicular breath sounds. ABDOMEN: Soft and nontender. Bowel sounds heard in all quadrants. EXTREMITIES: Without cyanosis or clubbing. Cervical collar in place. CENTRAL NERVOUS SYSTEM: Improving deconditioning. IMPRESSION: 1. Cervical spine fracture, requiring surgical fixation. 2. Hypertension. 3. Dyslipidemia. 4. Coronary artery disease. 5. Possible neuropathic pain. PLAN: 1. Continue current medications. 2. Heart healthy diet. 3. Spinal precautions. 4. Monitor somnolence with increased gabapentin. 5. DVT and stress ulcer prophylaxis. 6. Decubitus precautions. 7. Routine laboratory values. Job ID: [id number]
[2020-01-08] MEDS: Lidocaine Patch Removal 1 EACH TOP SCH (21:55)
[2020-01-08] MEDS: Atorvastatin Calcium 20 MG TAB PO SCH (21:55)
[2020-01-09] MEDS: oxyCODONE 5 MG TAB PO SCH (05:32)
[2020-01-09] MEDS: Heparin 5,000 UNITS/ML VIAL SC SCH ×3 (05:32→21:48)
[2020-01-09] MEDS: Aspirin 81 mg Enteric Coated Tablet PO SCH (08:37)
[2020-01-09] MEDS: Gabapentin 300 MG CAP PO SCH ×3 (08:38→21:47)
[2020-01-09] MEDS: Lidocaine 5% Patch TD SCH (08:38)
[2020-01-09] MEDS: Sodium Chloride 1 GM TAB PO SCH ×2 (08:39→21:45)
[2020-01-09] MEDS: Ferrous Gluconate 324 MG TAB PO SCH (08:41)
[2020-01-09] MEDS: Magnesium Oxide 400 MG TAB PO SCH ×2 (08:42→21:46)
[2020-01-09] MEDS: Citalopram 20 MG TAB PO SCH (08:43)
[2020-01-09] MEDS: Digoxin 0.125 MG TAB PO SCH (08:44)
[2020-01-09] MEDS: Sotalol HCl 80 MG TAB PO SCH ×2 (08:47→21:47)
--- NOTE | 2020-01-09 16:39 | PRG ---
DATE OF SERVICE: 01/09/2020 SUBJECTIVE: Ms. Holliday is a well-developed thin 79-year-old white female, who unfortunately fell at home. She had a resultant C1-C2 fracture and was seen by Neurosurgery and initially placed in cervical collar. She was transferred to rehab hospital, where she fell again. She was sent back to the hospital, re-evaluated , and transferred to Dr. Wai Lobo in [place] at [facility]. He performed a C1-C2 posterior laminectomy at [facility] in [facility]. Postoperatively, the patient did well, was transferred here for physical therapy , occupational therapy, and pain management. The patient's primary care physician is Dr. Foster Arndt. The patient states she is doing well, but she woke up, somewhat groggy this morning, would like to switch her pain medicine 10 mg oxycodone every morning to 10 mg at lunch and a 5 mg in the morning. OBJECTIVE: VITAL SIGNS: Today, reveal blood pressure this morning 110/58, pulse 78, respirations 18, O2 saturation 94 - 99% on room air. GENERAL: This is a well-developed, well-nourished, very talkative 79-year-old white female, in no apparent distress at this time. HEENT: Reveals normocephalic and nontraumatic cranium. The pupils are equal, round, and reactive. Extraocular movements are intact. Nose and throat are slightly dry, but clear. NECK: Supple without masses, nodes, or bruits. CHEST: Clear to auscultation. No rales, no rhonchi, no wheezes are heard. HEART: Reveals a regular rate and rhythm without murmurs, gallops, or rubs. ABDOMEN: Soft, nontender without organomegaly. Normal bowel sounds are noted. No rebound or guarding is noted. : Deferred. EXTREMITIES: Reveal no clubbing, cyanosis, or edema. The patient states her extremities are very weak. ASSESSMENT: 1. Pain management has actually been stable, but the patient would like to move her oxycodone to 10 mg at noon rather than morning. 2. Continue gabapentin 100 mg three times a day and 300 mg at bedtime. 3. Continue to monitor the patient's blood pressure closely. 4. Coronary artery disease. 5. Hyperlipidemia. 6. Status post C1-C2 posterior laminectomy done in [place] by Dr. Lobo. 7. Atrial fibrillation, presently on heparin. 8. Anemia. 9. Metabolic encephalopathy. 10. Urinary tract infection. 11. Generalized weakness. PLAN: 1. Continue ferrous gluconate 324 daily. 2. Continue present medication. 3. Stress ulcer prophylaxis. 4. Decubitus precautions. 5. Follow the patient's blood pressure closely and adjust medications as needed. 6. Follow the patient's heart rate for RVR. 7. Monitor the patient's renal status and anemia. 8. Continue physical therapy and occupational therapy. 9. Discontinue the patient's oxycodone 10 mg at breakfast and move it to lunch. Job ID: [id number] MTDD
[2020-01-09] MEDS: Atorvastatin Calcium 20 MG TAB PO SCH (21:47)
[2020-01-09] MEDS: oxyCODONE 5 MG TAB PO PRN (21:50)
[2020-01-09] MEDS: Lidocaine Patch Removal 1 EACH TOP SCH (22:03)
[2020-01-10] MEDS: oxyCODONE 5 MG TAB PO PRN ×2 (05:27→17:00)
[2020-01-10] MEDS: Heparin 5,000 UNITS/ML VIAL SC SCH ×3 (05:29→22:12)
[2020-01-10 05:45] LABS: #Eosinphils 0.1 thou/uL (0.0-0.7); #Lymphocytes 0.9 thou/uL (1.20-3.40); #Monocytes 0.5 thou/uL (0.11-0.59); #Neutrophils 3.9 thou/uL (1.40-6.50); %Basophils 0.7 % (0.0-1.0); %Eosinophils 2.6 % (0.0-10.0); %Lymphocytes 17.2 % (21.0-51.0); %Monocytes 8.3 % (0.0-10.0); %Neutrophils 71.2 % (42.0-75.0); Hemoglobin 9.2 g/dL (12.0-16.0); Mean Corpuscular HGB CONC 33.7 g/dL (32.0-36.0); Mean Corpuscular Volume 89.1 fL (78.0-98.0); Mean Platelet Volume 5.7 fL (7.4-10.4); Platelet Count 225 thou/uL (130-400); RBC Distribution Width 15.8 % (11.5-14.5); Red Blood Cell (RBC) Count 3.08 mill/uL (4.20-5.40); White Blood Cell (WBC) Count 5.5 thou/uL (4.8-10.8)
[2020-01-10 05:56] LABS: Anion Gap 11 mmol/L (10-20); BUN (Urea Nitrogen) 7 mg/dL (9.8-20.1); Calc. Creatinine Clearance 61 mL/min (70-130); Calcium 8.7 mg/dL (7.8-10.44); Carbon Dioxide 26 mmol/L (23-31); Chloride 99 mmol/L (98-107); Estimated GFR-MDRD Greater than 90; Glucose 100 mg/dL (83-110); Potassium 3.8 mmol/L (3.5-5.1); Sodium 132 mmol/L (136-145)
[2020-01-10] MEDS: Sodium Chloride 1 GM TAB PO SCH ×2 (08:16→22:13)
[2020-01-10] MEDS: Ferrous Gluconate 324 MG TAB PO SCH (08:16)
[2020-01-10] MEDS: Aspirin 81 mg Enteric Coated Tablet PO SCH (08:16)
[2020-01-10] MEDS: Gabapentin 300 MG CAP PO SCH ×3 (08:16→22:12)
[2020-01-10] MEDS: Magnesium Oxide 400 MG TAB PO SCH ×2 (08:17→22:13)
[2020-01-10] MEDS: Sotalol HCl 80 MG TAB PO SCH ×2 (08:17→22:00)
[2020-01-10] MEDS: Citalopram 20 MG TAB PO SCH (08:17)
[2020-01-10] MEDS: Lidocaine 5% Patch TD SCH (08:18)
[2020-01-10] MEDS: Digoxin 0.125 MG TAB PO SCH (08:22)
[2020-01-10] MEDS: oxyCODONE 5 MG TAB PO SCH (11:50)
--- NOTE | 2020-01-10 13:28 | PRG ---
DATE OF SERVICE: 01/10/2020 SUBJECTIVE: Ms. Holliday is a very thin, weak 79-year-old white female, who fell at home with resultant C1-C2 fracture. Seen Neurosurgery, placed a cervical collar and transferred to rehab hospital. Unfortunately, while she was there, she was so weak, she fell again, sent back to hospital, re-evaluated, transferred to Dr. Wai Lobo in [place] at [facility]. He did a C1-C2 posterior laminectomy at [facility] in [facility]. Postoperatively, she did well and was transferred here for PT, OT, and pain management. The patient states that she typically takes oxycodone 10 mg three times a day as followed by Dr. Foster Arndt. Since she has been here, we have been trying to wean her oxycodone and have increased her gabapentin. OBJECTIVE: VITAL SIGNS: Today reveal blood pressure 135/69, pulse 80 to 81, respirations 20, O2 saturation 95% on room air, T-max 97.8. GENERAL: Reveals a well-developed, well-nourished, pleasant 79-year-old white female, in no apparent distress at this time. HEENT: Normocephalic and nontraumatic cranium. Pupils are equal, round, and reactive. Extraocular movements are intact. Nose and throat are slightly dry. NECK: Supple without masses, nodes, or bruits. CHEST: Clear to auscultation. No rales, rhonchi, wheezes, or cough is heard. HEART: Reveals a regular rate and rhythm without murmurs, gallops, or rubs. ABDOMEN: Soft, protuberant, nontender without organomegaly. Normal bowel sounds are noted. No rebound or guarding is noted. : Deferred. EXTREMITIES: Reveal no clubbing, cyanosis, or edema. Physical therapy was discussed with the patient and the therapist today, and the patient still is very weak. ASSESSMENT: 1. Continued back pain. 2. Hypertension. 3. Coronary artery disease. 4. Hyperlipidemia. 5. Status post C1 posterior laminectomy done in [place] by Dr. Lobo. 6. Atrial fibrillation, rate controlled, presently on heparin. 7. Anemia. 8. Metabolic encephalopathy. 9. Recent urinary tract infection. 10. Generalized weakness. PLAN: 1. Continue gabapentin 300 mg t.i.d. 2. Continue OxyContin 5 mg q.4, but 10 mg at lunch. 3. Continue to monitor the patient's blood pressure closely. 4. Continue present medications. 5. Stress ulcer prophylaxis. 6. Decubitus precautions. 7. Monitor the patient's heart rate for RVR. 8. Monitor the patient's anemia and renal status. 9. Continue physical therapy and occupational therapy. Job ID: [id number]
[2020-01-10] MEDS: Atorvastatin Calcium 20 MG TAB PO SCH (22:12)
[2020-01-10] MEDS: Lidocaine Patch Removal 1 EACH TOP SCH (22:13)
[2020-01-11] MEDS: Heparin 5,000 UNITS/ML VIAL SC SCH ×3 (05:36→21:42)
[2020-01-11] MEDS: Ferrous Gluconate 324 MG TAB PO SCH (09:20)
[2020-01-11] MEDS: Sotalol HCl 80 MG TAB PO SCH ×2 (09:20→21:44)
[2020-01-11] MEDS: Citalopram 20 MG TAB PO SCH (09:20)
[2020-01-11] MEDS: Sodium Chloride 1 GM TAB PO SCH ×2 (09:20→21:45)
[2020-01-11] MEDS: Magnesium Oxide 400 MG TAB PO SCH ×2 (09:20→21:42)
[2020-01-11] MEDS: Gabapentin 300 MG CAP PO SCH ×3 (09:21→21:43)
[2020-01-11] MEDS: Aspirin 81 mg Enteric Coated Tablet PO SCH (09:21)
[2020-01-11] MEDS: Lidocaine 5% Patch TD SCH (09:21)
[2020-01-11] MEDS: Digoxin 0.125 MG TAB PO SCH (09:21)
[2020-01-11] MEDS: oxyCODONE 5 MG TAB PO PRN ×2 (09:22→21:44)
[2020-01-11] MEDS: oxyCODONE 5 MG TAB PO SCH (11:54)
--- NOTE | 2020-01-11 13:18 | PRG ---
DATE OF SERVICE: 01/11/2020 SUBJECTIVE: Ms. Holliday is an 79-year-old, thin white female, who fell at home. She had a resultant C1-C2 fracture, was seen by Neurosurgery. She was nonoperative and placed in a C-collar and transferred to the rehab hospital for therapy. Unfortunately, while she was there, she fell. She was re-evaluated, back to the hospital, and transferred to [facility] in [facility], where Dr. Wai Lobo saw the patient. He did a C1-C2 posterior laminectomy. Postoperatively, she did well and was transferred here for physical therapy, occupational therapy, and pain management. Today, the patient states she is followed by Dr. Foster Arndt and takes hydrocodone 10 mg typically three times a day, where as before she told me she was taking oxycodone. Since she has been here, she has been on the oxycodone typically 10 mg at lunch and 5 mg p.r.n. she states it does not seem to work as well as the hydrocodone she is considering and we are considering switching her over. OBJECTIVE: VITAL SIGNS: Today reveal blood pressure 129/66 to 135/80, pulse 98, respirations 20, O2 saturation 96% on room air, T-max 96.3. GENERAL: Well-developed, very thin, white female, in no apparent distress at this time. HEENT: Normocephalic and nontraumatic cranium. Pupils equally round and reactive. Extraocular movements are intact. Nose and throat are slightly dry, but clear. NECK: Supple without masses, nodes, or bruits. CHEST: Clear to auscultation. No rales, rhonchi, wheezes, or cough is heard. HEART: Reveals a regular rate and rhythm without murmurs, gallops, or rubs. ABDOMEN: Soft and nontender without organomegaly. Normal bowel sounds are noted. No rebound or guarding is noted. : Deferred. EXTREMITIES: Reveal no clubbing, cyanosis, or edema. NEUROLOGIC: The patients's joshua have been removed on the posterior part of her neck. She has been steri stripped and looked so very well. It is not red, is not draining, is not oozing, is not inflamed. ASSESSMENT: 1. Status post C1 posterior laminectomy done in [place] by Dr. Wai Lobo. 2. Hypertension. 3. Coronary artery disease. 4. Hyperlipidemia. 5. Atrial fibrillation, rate controlled, presently on heparin. 6. Anemia. 7. Metabolic encephalopathy, resolved. 8. Urinary tract infection, resolved. 9. Generalized weakness. PLAN: 1. Continue OxyContin 10 mg scheduled at lunch and 5 mg q.4 p.r.n. 2. Encourage the patient that first thing when she wakes up in the morning to ask for OxyContin 5. 3. Continue gabapentin 300 mg t.i.d. 4. Continue to monitor the patient's blood pressure closely. 5. Stress ulcer prophylaxis. 6. Decubitus precautions. 7. Monitor the patient's heart rate for RVR. 8. Continue present medications. 9. Continue to monitor the patient's anemia and renal status. 10. Continue physical therapy and occupational therapy. Job ID: [id number]
[2020-01-11] MEDS: Megestrol Acetate 400 MG/10 ML UDCUP PO SCH (21:42)
[2020-01-11] MEDS: Atorvastatin Calcium 20 MG TAB PO SCH (21:43)
[2020-01-11] MEDS: Cyclobenzaprine 10 MG TAB PO PRN (21:43)
[2020-01-11] MEDS: Lidocaine Patch Removal 1 EACH TOP SCH (21:45)
[2020-01-12] MEDS: Heparin 5,000 UNITS/ML VIAL SC SCH ×3 (06:03→21:00)
[2020-01-12] MEDS: Sodium Chloride 1 GM TAB PO SCH ×2 (07:48→21:00)
[2020-01-12] MEDS: Lidocaine 5% Patch TD SCH (07:48)
[2020-01-12] MEDS: Megestrol Acetate 400 MG/10 ML UDCUP PO SCH ×2 (07:48→21:00)
[2020-01-12] MEDS: Citalopram 20 MG TAB PO SCH (07:48)
[2020-01-12] MEDS: oxyCODONE 5 MG TAB PO PRN ×2 (07:49→21:01)
[2020-01-12] MEDS: Gabapentin 300 MG CAP PO SCH ×3 (07:49→21:00)
[2020-01-12] MEDS: Sotalol HCl 80 MG TAB PO SCH ×2 (07:49→21:00)
[2020-01-12] MEDS: Magnesium Oxide 400 MG TAB PO SCH ×2 (07:49→21:01)
[2020-01-12] MEDS: Ferrous Gluconate 324 MG TAB PO SCH (07:49)
[2020-01-12] MEDS: Aspirin 81 mg Enteric Coated Tablet PO SCH (07:50)
[2020-01-12] MEDS: Digoxin 0.125 MG TAB PO SCH (07:50)
[2020-01-12] MEDS: oxyCODONE 5 MG TAB PO SCH (12:36)
--- NOTE | 2020-01-12 12:51 | PRG ---
DATE OF SERVICE: 01/12/2020 SUBJECTIVE: Ms. Holliday is an 79-year-old white female, who fell at home with resultant C1-C2 fracture. She was seen by Neurosurgery and thought to be nonoperative. She was placed in C-collar and sent to rehab hospital. Unfortunately, while she was there, she fell and she had to go back to the hospital for re-evaluation. She was transferred to [facility] in [place], where Dr. Wai Lobo did a C1-C2 posterior laminectomy. Postoperatively, she did well except she had pain management problems. She was sent here for physical therapy , occupational therapy, and pain management. The patient states she is doing well, but her pain continues. She typically sees Dr. Foster Arndt and has been on chronic pain medication, hydrocodone 10 mg three times a day typically. OBJECTIVE: VITAL SIGNS: Today reveal blood pressure is 130/67, pulse 83 to 98, respirations 20, O2 saturation 96% on room air, T-max 97.2. GENERAL: This is a well-developed, well-nourished, thin white female, in no apparent distress at this time. HEENT: Reveals normocephalic and nontraumatic cranium. Pupils are equally round and reactive. Extraocular movements are intact. Nose and throat are slightly dry. NECK: Supple without masses, nodes, or bruits. CHEST: Clear to auscultation. No rales, rhonchi, or wheezes are heard. No cough is noted. HEART: Reveals a regular rate and rhythm without murmurs, gallops, or rubs. ABDOMEN: Soft and nontender without organomegaly. Normal bowel sounds are noted. No rebound or guarding is noted. GENITOURINARY: Deferred. EXTREMITIES: Revealed no clubbing, cyanosis, or edema. NEUROLOGIC: The patient has had her bandages and joshua on the back of her neck removed. She is still in a C-collar, and Steri-Strips look still good. She has no concerns or complaints. Speech Therapy is in her room right now, we are further evaluating her. She is drinking well with thin liquids, but has difficulty with mechanical soft foods. ASSESSMENT: 1. Status post C1-C2 posterior laminectomy done in [place] by Dr. Wai Lobo at [facility]. 2. Hypertension. 3. Coronary artery disease. 4. Hyperlipidemia. 5. Atrial fibrillation, rate controlled, presently on heparin. 6. Anemia. 7. Metabolic encephalopathy, resolved. 8. Urinary tract infection, resolved. 9. Generalized weakness. PLAN: 1. Continue present medications. 2. Encourage the patient to take her OxyContin 5 mg when she first gets up. 3. Continue gabapentin 300 mg t.i.d. 4. Monitor the patient's blood pressure closely. 5. Stress ulcer prophylaxis. 6. Decubitus precautions. 7. Monitor the patient's heart rate for RVR. 8. Continue present medications. 9. Continue to monitor the patient's anemia and renal status. 10. Continue PT and OT. Job ID: [id number] MTDD
[2020-01-12] MEDS: Atorvastatin Calcium 20 MG TAB PO SCH (21:00)
[2020-01-12] MEDS: Cyclobenzaprine 10 MG TAB PO PRN (21:02)
[2020-01-12] MEDS: Lidocaine Patch Removal 1 EACH TOP SCH (21:43)
[2020-01-13] MEDS: Heparin 5,000 UNITS/ML VIAL SC SCH ×3 (06:00→21:41)
[2020-01-13] MEDS: Sodium Chloride 1 GM TAB PO SCH ×2 (08:00→21:46)
[2020-01-13] MEDS: oxyCODONE 5 MG TAB PO PRN ×2 (08:00→21:48)
[2020-01-13] MEDS: Megestrol Acetate 400 MG/10 ML UDCUP PO SCH ×2 (08:00→21:46)
[2020-01-13] MEDS: Lidocaine 5% Patch TD SCH (08:00)
[2020-01-13] MEDS: Citalopram 20 MG TAB PO SCH (08:01)
[2020-01-13] MEDS: Gabapentin 300 MG CAP PO SCH ×3 (08:01→21:47)
[2020-01-13] MEDS: Magnesium Oxide 400 MG TAB PO SCH ×2 (08:01→21:46)
[2020-01-13] MEDS: Sotalol HCl 80 MG TAB PO SCH ×2 (08:01→21:47)
[2020-01-13] MEDS: Digoxin 0.125 MG TAB PO SCH (08:01)
[2020-01-13] MEDS: Aspirin 81 mg Enteric Coated Tablet PO SCH (08:02)
[2020-01-13] MEDS: Ferrous Gluconate 324 MG TAB PO SCH (08:02)
[2020-01-13] MEDS: oxyCODONE 5 MG TAB PO SCH (11:48)
--- NOTE | 2020-01-13 12:43 | PRG ---
DATE OF SERVICE: 01/13/2020 SUBJECTIVE: Ms. Holliday is an 79-year-old white female, who fell at home and had a resultant C1-C2 fracture. She was seen by Neurosurgery, placed in a C-collar and was found to be nonoperative. She was transferred to inpatient rehab, where she was doing well until she fell and had a re-fracture. This time, she was transferred to [facility] in [place], where Dr. Wai Lobo did a C1-C2 posterior laminectomy. Postoperative, she did well except for pain management. She was transferred to [facility] for PT, OT, and pain management. The patient states she is doing well, but she is still not getting her oxycodone 5 mg early and she is getting it about 9 o'clock or 0930 hours, which is too late because she is already having therapy. We will try to get it scheduled at 7 o'clock in the morning. OBJECTIVE: VITAL SIGNS: Today reveal blood pressure 146/79, pulse 80 to 84, respirations 20, O2 saturation 98% on room air, and T-max 96.4. GENERAL: This is a well-developed, well-nourished, pleasant, 79-year-old thin white female, in no apparent distress at this time. HEENT: Reveals normocephalic and nontraumatic cranium. Pupils are equally round and reactive. Extraocular movements are intact. Nose and throat are slightly dry. NECK: Supple without masses, nodes, or bruits. CHEST: Clear to auscultation. No rales, rhonchi, wheezes, or cough is heard. HEART: Reveals a regular rate and rhythm without murmurs, gallops, or rubs. ABDOMEN: Soft, nontender without organomegaly. Normal bowel sounds are noted in all 4 quadrants. No rebound or guarding is noted. : Deferred. EXTREMITIES: Reveal no clubbing, cyanosis, or edema. NEUROLOGIC: The patient has bandages and joshua in the back of her neck, which had been removed and she now has Steri-Strips, which are not red, not irritated. This patient is continuing to wear C-collar. We did contact Dr. Wai Lobo's office and he would like to have some x-rays done, which we would do, but he does not want to have her come to the office because of the COVID epidemic. ASSESSMENT: 1. Status post C1-C2 posterior [place]amine[place] [facility] 2. Hypertension, fairly good control. 3. Coronary artery disease. 4. Hyperlipidemia. 5. Atrial fibrillation, rate controlled, presently on heparin. 6. Anemia. 7. Metabolic encephalopathy, resolved. 8. Urinary tract infection, resolved. 9. Generalized weakness. 10. Balance problems. PLAN: 1. Continue present medications, but we will move her OxyContin to 5 mg scheduled at 7 o'clock in the morning. 2. Continue gabapentin 300 mg t.i.d. 3. Monitor the patient's blood pressure closely. 4. Stress ulcer prophylaxis. 5. Decubitus precautions. 6. Monitor the patient's heart rate for RVR. 7. Continue present medications. 8. Continue to monitor the patient's anemia and renal status. 9. Continue physical therapy and occupational therapy. Job ID: [id number]
--- NOTE | 2020-01-13 16:09 | RAD ---
4 views of the cervical spine: 01/13/2020 COMPARISON: 12/07/2019 HISTORY: Follow-up requested following cervical spine surgery FINDINGS: Previously noted fracture at the base of the dens again seen. There is posterior fusion annalisa dware at the C1 and C2 levels, new when compared to the prior exam. Posterior displacement of the dens fracture with respect to the body of the dens measures approximately 1 cm, significantly improve d when compared to the prior examination at which time this posterior displacement measured at least 2 cm. There is multilevel disc space narrowing with degenerative endplate change within the cervical spine. There is also multilevel bilateral facet and uncovertebral osteophyte formation within the cervical spine. Incompletely imaged transvenous pacing device and midline sternotomy wires are present. IMPRESSION: Interval posterior fusion hardware placement at the C1-2 level. There is posterior displa cement of the dens fracture fragment with respect to the body of the dens, improved since the prior exam.
[2020-01-13] MEDS: Atorvastatin Calcium 20 MG TAB PO SCH (21:47)
[2020-01-13] MEDS: Cyclobenzaprine 10 MG TAB PO PRN (21:47)
[2020-01-13] MEDS: Lidocaine Patch Removal 1 EACH TOP SCH (21:49)
[2020-01-14] MEDS: Heparin 5,000 UNITS/ML VIAL SC SCH ×3 (05:55→21:39)
[2020-01-14] MEDS: oxyCODONE 5 MG TAB PO SCH ×2 (05:56→13:04)
[2020-01-14] MEDS: Aspirin 81 mg Enteric Coated Tablet PO SCH (08:16)
[2020-01-14] MEDS: Megestrol Acetate 400 MG/10 ML UDCUP PO SCH ×2 (08:16→21:28)
[2020-01-14] MEDS: Citalopram 20 MG TAB PO SCH (08:17)
[2020-01-14] MEDS: Sodium Chloride 1 GM TAB PO SCH ×2 (08:17→21:28)
[2020-01-14] MEDS: Gabapentin 300 MG CAP PO SCH ×3 (08:17→21:28)
[2020-01-14] MEDS: Ferrous Gluconate 324 MG TAB PO SCH (08:17)
[2020-01-14] MEDS: Magnesium Oxide 400 MG TAB PO SCH ×2 (08:17→21:28)
[2020-01-14] MEDS: Lidocaine 5% Patch TD SCH (08:17)
[2020-01-14] MEDS: Sotalol HCl 80 MG TAB PO SCH ×2 (08:17→21:38)
[2020-01-14] MEDS: Digoxin 0.125 MG TAB PO SCH (08:18)
[2020-01-14] MEDS: Atorvastatin Calcium 20 MG TAB PO SCH (21:37)
[2020-01-14] MEDS: Lidocaine Patch Removal 1 EACH TOP SCH (21:37)
[2020-01-15] MEDS: Heparin 5,000 UNITS/ML VIAL SC SCH ×3 (05:57→21:21)
[2020-01-15] MEDS: oxyCODONE 5 MG TAB PO SCH (07:00)
[2020-01-15] MEDS: Sodium Chloride 1 GM TAB PO SCH ×2 (08:33→21:22)
[2020-01-15] MEDS: Citalopram 20 MG TAB PO SCH (08:33)
[2020-01-15] MEDS: Ferrous Gluconate 324 MG TAB PO SCH (08:33)
[2020-01-15] MEDS: Gabapentin 300 MG CAP PO SCH ×4 (08:33→21:22)
[2020-01-15] MEDS: Sotalol HCl 80 MG TAB PO SCH ×2 (08:34→21:22)
[2020-01-15] MEDS: Digoxin 0.125 MG TAB PO SCH (08:34)
[2020-01-15] MEDS: Magnesium Oxide 400 MG TAB PO SCH ×2 (08:34→21:22)
[2020-01-15] MEDS: Megestrol Acetate 400 MG/10 ML UDCUP PO SCH ×2 (08:35→21:21)
[2020-01-15] MEDS: Lidocaine 5% Patch TD SCH (08:35)
[2020-01-15] MEDS: Aspirin 81 mg Enteric Coated Tablet PO SCH (08:35)
[2020-01-15] MEDS: oxyCODONE 5 MG TAB PO PRN (19:55)
[2020-01-15] MEDS: Atorvastatin Calcium 20 MG TAB PO SCH (21:22)
[2020-01-15] MEDS: Lidocaine Patch Removal 1 EACH TOP SCH (21:22)
--- NOTE | 2020-01-16 05:37 | PRG ---
DATE OF SERVICE: 01/14/2020 SUBJECTIVE: The patient is an 79-year-old white female, patient of Dr. Ibrahim, with a history of a fall and a C1-C2 fracture requiring surgical repair with posterior laminectomy. She is now in a cervical collar, but has been having significant amount of pain and has been started on routine oxycodone at night. However, the nurses state that this a.m. she is very sedated and has been unable to take any of her medications and requests the routine medication to be discontinued. OBJECTIVE: VITAL SIGNS: Show her temperature is 99.1, pulse 83, respirations 19, O2 saturations 95% on room air, and blood pressure 127/84. LUNGS: Clear. CARDIAC: Displays regular rhythm. ABDOMEN: Soft and nontender. NECK: In cervical collar. ASSESSMENT: 1. Resolving cervical posterior C1-C2 laminectomy with stable neurological exam. 2. Hypertension, good control. 3. Coronary artery disease, asymptomatic. 4. Atrial fibrillation, rate controlled on digoxin and diltiazem with only low-dose anticoagulation secondary to recent cervical surgery. PLAN: 1. Continue PT, OT. 2. Discontinue routine oxycodone, only continue p.r.n. 3. Continue prophylactic anticoagulation and rate control of atrial fibrillation. Job ID: [id number]
--- NOTE | 2020-01-16 05:55 | PRG ---
DATE OF SERVICE: 01/15/[address] Nidhi Ibrahim. SUBJECTIVE: The patient feels well, sitting up in the bed, no complaints today, asking when she can start on therapy again and is ready to improve, has only required pain medication on as needed basis, and slept well through the night. OBJECTIVE: VITAL SIGNS: Temperature 97.9, pulse 80, respirations 16, O2 sats 94% on room air, and blood pressure 124/58. LUNGS: Clear. CARDIAC: Regular rhythm. ABDOMEN: Soft and nontender. NEUROLOGICAL: Grossly intact. NECK: Does show healing posterior cervical laminectomy. ASSESSMENT: 1. Resolving C1-C2 laminectomy with adequate pain control. 2. Atrial fibrillation with rate control with only prophylactic subcu heparin. 3. Hypertension, controlled to goal. PLAN: Continue PT/OT tomorrow. Continue p.r.n. oxycodone for pain relief. Continue rate control of atrial fibrillation. Withhold full-dose anticoagulation because of recent cervical laminectomy. Job ID: [id number]
[2020-01-16] MEDS: Heparin 5,000 UNITS/ML VIAL SC SCH ×3 (05:56→21:33)
[2020-01-16] MEDS: Citalopram 20 MG TAB PO SCH (09:14)
[2020-01-16] MEDS: Aspirin 81 mg Enteric Coated Tablet PO SCH (09:14)
[2020-01-16] MEDS: Magnesium Oxide 400 MG TAB PO SCH ×2 (09:15→21:36)
[2020-01-16] MEDS: Digoxin 0.125 MG TAB PO SCH (09:15)
[2020-01-16] MEDS: Ferrous Gluconate 324 MG TAB PO SCH (09:15)
[2020-01-16] MEDS: Sodium Chloride 1 GM TAB PO SCH ×2 (09:16→21:35)
[2020-01-16] MEDS: Lidocaine 5% Patch TD SCH (09:17)
[2020-01-16] MEDS: Megestrol Acetate 400 MG/10 ML UDCUP PO SCH ×2 (09:18→21:37)
[2020-01-16] MEDS: Sotalol HCl 80 MG TAB PO SCH ×2 (09:19→21:36)
[2020-01-16] MEDS: oxyCODONE 5 MG TAB PO PRN (09:25)
[2020-01-16] MEDS: Gabapentin 300 MG CAP PO SCH ×2 (09:40→15:04)
[2020-01-16] MEDS: Ondansetron ODT 4 MG TAB PO PRN (11:07)
--- NOTE | 2020-01-16 18:55 | PRG ---
DATE OF SERVICE: 01/16/2020 SUBJECTIVE: Ms. Holliday is an 79-year-old white female who fell at home and had a resultant C1-C2 fracture. She was seen by Neurosurgery, placed in a C-collar and was found to be nonoperative. She was transferred to inpatient rehab, where she fell again. At this time, she had a significant 2-cm offset and she was transferred to [facility] in [place], where Dr. Wai Lobo did a C1-C2 posterior laminectomy. Postoperatively, she had quite a bit of pain, and she was transferred to [facility] for physical therapy, occupational therapy, and pain management. The patient is not doing very well today because she is looks like over-sedated with her oxycodone and/or gabapentin. After significant discussion, we decided to stop her oxycodone or gabapentin tonight and start her on hydrocodone 5/325 t.i.d. and gabapentin 100 mg b.i.d. and 200 mg at bedtime. OBJECTIVE: VITAL SIGNS: Today, reveal blood pressure 148/67, pulse 80 to 115, respirations 18, O2 saturation 95% on room air, and T-max 96.7. GENERAL: This is a well-developed, well-nourished, seems like overly-sedated, white female, in no apparent distress at this time. HEENT: Reveals normocephalic and nontraumatic cranium. Pupils are equally round and reactive. Extraocular movements are intact. Nose and throat are slightly dry. NECK: Supple without masses, nodes, or bruits. The patient's neck is in a cervical collar at all times. CHEST: Clear to auscultation. No rales, rhonchi, or wheezes are heard. HEART: Reveals a regular rate and rhythm, rate controlled, and she has chronic atrial fibrillation. ABDOMEN: Soft, nontender without organomegaly. Normal bowel sounds were noted. No rebound or guarding was noted. : Deferred. EXTREMITIES: Reveal no clubbing, cyanosis, or edema. DIAGNOSTIC DATA: She did have an x-ray today, which revealed improved in the alignment of her C-spine, especially the belinda and dens. Those x-rays will be sent to Dr. Wai Lobo in [place]. ASSESSMENT: 1. C1-C2 fracture post laminectomy done in [place] by Dr. Wai Lobo at [facility]. 2. Hypertension. 3. Coronary artery disease. 4. Hyperlipidemia. 5. Atrial fibrillation, rate controlled, presently on heparin. 6. Anemia. 7. Metabolic encephalopathy, resolved. 8. Urinary tract infection, resolved. 9. Generalized weakness. 10. Balance problems. 11. Over-sedated. PLAN: 1. We will discontinue her OxyContin at this time. 2. We will discontinue her gabapentin 300 t.i.d. 3. We will start her on hydrocodone 5/325 t.i.d. 4. Start gabapentin 100 mg b.i.d. and 200 mg at bedtime. 5. Stress ulcer prophylaxis. 6. Decubitus precautions. 7. Monitor the patient's heart rate for RVR. 8. Continue present medications. 9. Continue to monitor the patient's anemia and renal status. 10. Lab work tomorrow. 11. Continue physical therapy and occupational therapy. Job ID: [id number]
[2020-01-16] MEDS: Gabapentin 100 MG CAP PO SCH (21:35)
[2020-01-16] MEDS: Atorvastatin Calcium 20 MG TAB PO SCH (21:36)
[2020-01-16] MEDS: HYDROcodone/Acetaminophen 5/325 mg Tablet PO PRN (21:36)
[2020-01-16] MEDS: Lidocaine Patch Removal 1 EACH TOP SCH (21:37)
[2020-01-17 05:20] LABS: #Monocytes 0.8 thou/uL (0.11-0.59); #Neutrophils 7.3 thou/uL (1.40-6.50); %Basophils 0.4 % (0.0-1.0); %Eosinophils 0.4 % (0.0-10.0); %Lymphocytes 10.6 % (21.0-51.0); %Monocytes 8.3 % (0.0-10.0); %Neutrophils 80.4 % (42.0-75.0); Hemoglobin 8.5 g/dL (12.0-16.0); Mean Corpuscular HGB CONC 33.4 g/dL (32.0-36.0); Mean Corpuscular Hemoglobin 29.6 pg (27.0-31.0); Mean Corpuscular Volume 88.7 fL (78.0-98.0); Mean Platelet Volume 5.3 fL (7.4-10.4); Platelet Count 257 thou/uL (130-400); RBC Distribution Width 15.7 % (11.5-14.5); Red Blood Cell (RBC) Count 2.88 mill/uL (4.20-5.40); White Blood Cell (WBC) Count 9.1 thou/uL (4.8-10.8)
[2020-01-17 05:43] LABS: ALT (SGPT) 11 U/L (8-55); AST (SGOT) 11 U/L (5-34); Albumin 3.2 g/dL (3.4-4.8); Alkaline Phosphatase 66 U/L (40-110); Anion Gap 12 mmol/L (10-20); BUN (Urea Nitrogen) 14 mg/dL (9.8-20.1); Bilirubin, Total 1.9 mg/dL (0.2-1.2); Calc. Creatinine Clearance 58 mL/min (70-130); Calcium 9.3 mg/dL (7.8-10.44); Carbon Dioxide 24 mmol/L (23-31); Chloride 100 mmol/L (98-107); Estimated GFR-MDRD Greater than 90; Globulin 2.9 g/dL (2.4-3.5); Glucose 96 mg/dL (83-110); Protein, Total 6.1 g/dL (6.0-8.3); Sodium 132 mmol/L (136-145)
[2020-01-17] MEDS: Heparin 5,000 UNITS/ML VIAL SC SCH ×3 (05:57→21:45)
[2020-01-17] MEDS: HYDROcodone/Acetaminophen 5/325 mg Tablet PO PRN ×2 (08:22→21:46)
[2020-01-17] MEDS: Sotalol HCl 80 MG TAB PO SCH ×2 (08:23→21:47)
[2020-01-17] MEDS: Digoxin 0.125 MG TAB PO SCH (08:23)
[2020-01-17] MEDS: Sodium Chloride 1 GM TAB PO SCH ×2 (08:23→21:45)
[2020-01-17] MEDS: Ferrous Gluconate 324 MG TAB PO SCH (08:24)
[2020-01-17] MEDS: Gabapentin 100 MG CAP PO SCH ×3 (08:24→21:47)
[2020-01-17] MEDS: Magnesium Oxide 400 MG TAB PO SCH ×2 (08:24→21:47)
[2020-01-17] MEDS: Citalopram 20 MG TAB PO SCH (08:24)
[2020-01-17] MEDS: Megestrol Acetate 400 MG/10 ML UDCUP PO SCH ×2 (08:24→21:48)
[2020-01-17] MEDS: Lidocaine 5% Patch TD SCH (08:24)
[2020-01-17] MEDS: Aspirin 81 mg Enteric Coated Tablet PO SCH (08:38)
[2020-01-17] MEDS: Ondansetron ODT 4 MG TAB PO PRN (09:09)
[2020-01-17] MEDS ORDERED: HYDROcodone/Acetaminophen 5/325 mg Tablet PO SCH (11:15)
--- NOTE | 2020-01-17 11:38 | PRG ---
DATE OF SERVICE: 01/17/2020 SUBJECTIVE: Ms. Holliday is an 79-year-old white female, who fell at home. She had a resultant C1-C2 fracture. She was seen by Neurosurgery and was placed in a C-collar. They decided she was nonoperative and transfer her to rehab. Unfortunately, in rehab, she fell again, had a significant 2 cm offset at this time, was transferred to [facility] in [place] where Dr. Wai Lobo did a C1-C2 posterior laminectomy. Postoperatively, she had quite a bit of pain. She was transferred to [facility] for physical therapy, occupational therapy and pain management. The patient yesterday was over medicated, so we stopped her oxycodone and gabapentin overnight. This morning, she is much more awake and alert. She did take hydrocodone 5 mg this morning and gabapentin 200 mg this morning. She got nauseated from the hydrocodone and had to have a Zofran sublingual. Otherwise, she is doing better. OBJECTIVE: VITAL SIGNS: Today reveal blood pressure 108/69, pulse 84 to 99, respirations 18, O2 saturation 96% on room air. T-max 96.3. GENERAL: This is a well-developed, well-nourished, pleasant 79-year-old white female, in no apparent distress at this time. HEENT: Normocephalic and nontraumatic cranium. Pupils are equal, round, and reactive. Extraocular movements are intact. Nose and throat are slightly dry. NECK: Supple without masses, nodes, or bruits but a cervical collar is noted at all times. CHEST: Clear to auscultation. No rales, rhonchi, wheezes, or cough is noted. HEART: Reveals a rate controlled chronic atrial fibrillation. Regular rhythm. ABDOMEN: Soft and nontender without organomegaly. Normal bowel sounds are noted in all 4 quadrants. No rebound or guarding is noted. : Deferred. EXTREMITIES: Reveal no clubbing, cyanosis, or edema. LABORATORY DATA: Revealed sodium still at 132. Potassium 4.0, BUN is 0.52. GFR is greater than 90. Her hemoglobin is decreased from 9.2 to 8.5 and hematocrit is decreased from 27.5 to 25.6. The patient is not eating very well. She ate 30% of breakfast yesterday. No lunch and 75% of dinner. She only ate 25% of breakfast this morning. ASSESSMENT: 1. C1-C2 fracture post laminectomy done at [place] by Dr. Dr. Wai Lobo at [facility]. 2. Hypertension. 3. Poor appetite. 4. Coronary artery disease. 5. Anemia. 6. Hyperlipidemia. 7. Atrial fibrillation, rate controlled, presently on heparin. 8. Metabolic encephalopathy. 9. Urinary tract infection, resolved. 10. Generalized weakness. 11. Balance problems. 12. Over-sedated which is resolved. PLAN: 1. The patient was started on [place] 5/325 q.i.d. p.r.n. 2. The patient was started on gabapentin 200 mg t.i.d. 3. Stress ulcer prophylaxis. 4. Decubitus precautions. 5. Monitor the patient's heart rate for RVR. 6. Continue present medications. 7. Continue to monitor the patient's anemia and renal status closely. 8. Lab work has been reviewed with the patient. 9. Continue PT and OT. Job ID: [id number]
[2020-01-17] MEDS: Atorvastatin Calcium 20 MG TAB PO SCH (21:47)
[2020-01-17] MEDS: Lidocaine Patch Removal 1 EACH TOP SCH (21:47)
[2020-01-18] MEDS: Heparin 5,000 UNITS/ML VIAL SC SCH ×3 (05:48→21:02)
[2020-01-18] MEDS: Magnesium Oxide 400 MG TAB PO SCH ×2 (10:00→20:56)
[2020-01-18] MEDS: Ferrous Gluconate 324 MG TAB PO SCH (10:00)
[2020-01-18] MEDS: Gabapentin 100 MG CAP PO SCH ×3 (10:00→20:55)
[2020-01-18] MEDS: Citalopram 20 MG TAB PO SCH (10:00)
[2020-01-18] MEDS: Aspirin 81 mg Enteric Coated Tablet PO SCH (10:00)
[2020-01-18] MEDS: Megestrol Acetate 400 MG/10 ML UDCUP PO SCH ×2 (10:00→20:56)
[2020-01-18] MEDS: Sotalol HCl 80 MG TAB PO SCH ×2 (10:00→20:57)
[2020-01-18] MEDS: Digoxin 0.125 MG TAB PO SCH (10:00)
[2020-01-18] MEDS: HYDROcodone/Acetaminophen 5/325 mg Tablet PO PRN (10:08)
[2020-01-18] MEDS: Sodium Chloride 1 GM TAB PO SCH ×2 (10:13→21:01)
[2020-01-18] MEDS: Lidocaine 5% Patch TD SCH (10:15)
--- NOTE | 2020-01-18 12:24 | PRG ---
DATE OF SERVICE: 01/18/2020 SUBJECTIVE: Ms. Holliday is an 79-year-old white female who was at home when she fell and had a resultant C1-C2 fracture. She was seen by Neurosurgery, felt to be nonsurgical, and placed in the C-collar. She was transferred to inpatient rehab where unfortunately, she fell again. She was sent back to the hospital, evaluated, found to have a 2-cm offset from the C1-C2 fracture. She was transferred to [facility] in [place] where Dr. Wai Lobo did a posterior C1-C2 laminectomy. Postoperatively, she had quite a bit of pain and was transferred here on oxycodone 10 mg t.i.d. She was transferred here for physical therapy, occupational therapy, and pain management. The patient has actually responded fairly well to gabapentin, but gets very sleepy with oxycodone and gabapentin. She states previously at home she was on hydrocodone 5 mg, so we did start her on hydrocodone 5/325 acetaminophen p.r.n. She continues with gabapentin 200 mg scheduled q.i.d. OBJECTIVE: VITAL SIGNS: Today reveal blood pressure 123/60, pulse 80 to 83, respirations 18, O2 saturation 97% on room air, and T-max 97.1. GENERAL: This is a well-developed, well-nourished, elderly white female who states she feels that the hydrocodone does a much better job of controlling her pain, and she took one earlier this morning, but none since. She is getting ready to have her therapy this morning. HEENT: Reveals normocephalic and nontraumatic cranium. Pupils are equally round and reactive. Extraocular movements are intact. Nose and throat are still slightly dry. NECK: Supple without masses, nodes, or bruits. Cervical collar is in place. CHEST: Clear to auscultation. No rales, rhonchi, wheezes, or cough is noted. HEART: Reveals a regular rate and rhythm. The patient is in a rate-controlled chronic atrial fibrillation. ABDOMEN: Soft and nontender without organomegaly. Normal bowel sounds are noted in all 4 quadrants. No rebound or guarding is noted. : Deferred. EXTREMITIES: Reveal no clubbing, cyanosis, or edema. The patient has no significant swelling or pain in her lower extremities, just arthritis pain. The patient continues to not eat very well. We did encourage her to eat better, and she states she ate a little better today. ASSESSMENT: 1. C1-C2 fracture, status post laminectomy done at [facility] by Dr. Wai Lobo at [facility] in [place]. 2. Hypertension. 3. Poor appetite. 4. Coronary artery disease. 5. Anemia. 6. Hyperlipidemia. 7. Atrial fibrillation, rate controlled, presently on heparin. 8. Metabolic encephalopathy. 9. Urinary tract infection, resolved. 10. Generalized weakness. 11. Balance problems. 12. Oversedated, which is resolved since the patient has been moved to hydrocodone. 13. The patient would like me to call her nephew if she gives me permission to talk to because he wants to become involved in her care at this time. His name is Rios Patel. His phone number is [phone]. PLAN: 1. We will contact Rios Patel at the previously above number. 2. Continue the patient on [place] 5/325 q.i.d. p.r.n. severe pain. 3. Continue the patient on gabapentin, but at a decreased dose, which is 200 mg t.i.d. 4. Stress ulcer prophylaxis. 5. Decubitus precautions. 6. Monitor the patient's heart rate for RVR. 7. Continue present medications. 8. Continue to monitor the patient's anemia and renal status closely. 9. Lab work was reviewed with the patient yesterday. 10. Continue with PT and OT. Job ID: [id number]
[2020-01-18] MEDS: Atorvastatin Calcium 20 MG TAB PO SCH (20:55)
[2020-01-18] MEDS: Lidocaine Patch Removal 1 EACH TOP SCH (20:56)
[2020-01-19] MEDS: Heparin 5,000 UNITS/ML VIAL SC SCH ×3 (05:52→21:26)
[2020-01-19] MEDS: Citalopram 20 MG TAB PO SCH (08:30)
[2020-01-19] MEDS: Aspirin 81 mg Enteric Coated Tablet PO SCH (08:30)
[2020-01-19] MEDS: Lidocaine 5% Patch TD SCH (08:30)
[2020-01-19] MEDS: Magnesium Oxide 400 MG TAB PO SCH ×2 (08:31→20:37)
[2020-01-19] MEDS: Sodium Chloride 1 GM TAB PO SCH ×2 (08:31→20:37)
[2020-01-19] MEDS: Gabapentin 100 MG CAP PO SCH ×3 (08:31→20:37)
[2020-01-19] MEDS: Ferrous Gluconate 324 MG TAB PO SCH (08:31)
[2020-01-19] MEDS: Sotalol HCl 80 MG TAB PO SCH ×2 (08:32→20:37)
[2020-01-19] MEDS: Digoxin 0.125 MG TAB PO SCH (08:34)
[2020-01-19] MEDS: Megestrol Acetate 400 MG/10 ML UDCUP PO SCH ×2 (08:34→20:40)
[2020-01-19] MEDS: HYDROcodone/Acetaminophen 5/325 mg Tablet PO PRN (10:28)
[2020-01-19] MEDS ORDERED: Acetaminophen/Codeine 30-300mg Tablet PO PRN (16:30)
--- NOTE | 2020-01-19 17:42 | PRG ---
DATE OF SERVICE: 01/19/2020 SUBJECTIVE: Ms. Holliday is a well-developed thin 79-year-old white female, who was at home when she fell. She had a resultant C1-C2 fracture with offset about 1 cm. Neurosurgery felt that she did not need surgery and placed her in C-collar. She was transferred to inpatient rehab where unfortunately, she fell again. This time, she had much more significant offset of 2 cm and she was transferred to inpatient hospital at [facility] in [place]. She was seen by Dr. aWi Lobo, who did a posterior C1-C2 laminectomy. Postoperatively, she had quite a bit of pain and was transferred to [facility] for pain management and physical therapy and occupational therapy. Unfortunately, the patient has been not well controlled with her pain and we have switched her from oxycodone to hydrocodone 5 mg up to 3 times a day. Unfortunately, that is way too strong, so we will transfer her to Tylenol No. 3 to see that is better. We will start that today. If that is not any better, then over the weekend Dr. Lloyd will see the patient. He may want to try tramadol 50 mg with the Tylenol. OBJECTIVE: VITAL SIGNS: Today reveal blood pressure 107/58, pulse 80-84, respirations 20, with O2 saturation 91% to 93% on room air. GENERAL: On physical exam, this is a well-developed, well-nourished, thin white female, in no apparent distress at this time. She does awaken and answer my questions, but she is very lethargic. Physical therapy and occupational therapy both note that since we switched her over to hydrocodone 5 mg yesterday, she has been much less able to do her therapy and more apt to be asleep. HEENT: Normocephalic and nontraumatic cranium. Pupils equally round and reactive. Extraocular movements are intact. Nose and throat are slightly dry. NECK: Supple without masses, nodes, or bruits. CHEST: Clear to auscultation. No rales, rhonchi, wheezes, or cough noted. Breath sounds are noted to be somewhat shallow. HEART: Regular rate and rhythm, but the patient is in chronic atrial fibrillation, but she is rate controlled. ABDOMEN: Soft, nontender without organomegaly. Normal bowel sounds are noted. No rebound or guarding is noted. GENITOURINARY: Deferred. EXTREMITIES: No clubbing, cyanosis, or edema. The patient has no significant swelling in her lower extremities, just arthritis pain. The patient still is not eating very well. ASSESSMENT: 1. Pain management, well controlled, now the patient is overly sedated on [place] 5/325. 2. C1-C2 fracture, status post posterior laminectomy done at [facility] by Dr. Wai Lobo. 3. Hypertension. 4. Coronary artery disease. 5. Anemia. 6. Atrial fibrillation, rate controlled. 7. Poor appetite. 8. Hyperlipidemia. 9. Metabolic encephalopathy. 10. Urinary tract infection, resolved. 11. Balance problems. 12. Agnew sedated on [place] 5. PLAN: 1. Stop the [place] 5. 2. Start Tylenol No. 3 q.6 hours p.r.n. pain. 3. If the patient's pain is controlled, great. If it is not and she is more sedated, we will have Dr. Lloyd consider tramadol over the weekend. 4. Continue to monitor the patient's blood pressure closely. 5. Continue to encourage the patient to eat and drink well. 6. Continue to monitor the patient's anemia and electrolytes. 7. Monitor the patient's atrial fib for RVR. 8. Stress ulcer prophylaxis. 9. Decubitus precautions. 10. DVT prophylaxis. 11. Monitor the patient's anemia and renal status. 12. Continue physical therapy and occupational therapy. 13. Dr. Lloyd will make rounds Thursday and this weekend. Job ID: [id number]
[2020-01-19] MEDS ORDERED: Sodium Chloride 1 GM TAB ONE (20:24)
[2020-01-19] MEDS: Atorvastatin Calcium 20 MG TAB PO SCH (20:37)
[2020-01-19] MEDS: Lidocaine Patch Removal 1 EACH TOP SCH (21:27)
[2020-01-20] MEDS: Heparin 5,000 UNITS/ML VIAL SC SCH ×3 (05:44→21:16)
[2020-01-20] MEDS: Magnesium Oxide 400 MG TAB PO SCH ×2 (09:59→21:06)
[2020-01-20] MEDS: Megestrol Acetate 400 MG/10 ML UDCUP PO SCH ×2 (09:59→21:11)
[2020-01-20] MEDS: Lidocaine 5% Patch TD SCH (09:59)
[2020-01-20] MEDS: Ferrous Gluconate 324 MG TAB PO SCH (09:59)
[2020-01-20] MEDS: Sotalol HCl 80 MG TAB PO SCH ×2 (10:00→21:07)
[2020-01-20] MEDS: Citalopram 20 MG TAB PO SCH (10:00)
[2020-01-20] MEDS: Gabapentin 100 MG CAP PO SCH ×3 (10:00→21:06)
[2020-01-20] MEDS: Aspirin 81 mg Enteric Coated Tablet PO SCH (10:01)
[2020-01-20] MEDS: Digoxin 0.125 MG TAB PO SCH (10:01)
[2020-01-20] MEDS ORDERED: Sodium Chloride 1 GM TAB ONE ×2 (10:28)
[2020-01-20] MEDS: Sodium Chloride 1 GM TAB PO SCH ×2 (10:31→21:11)
[2020-01-20] MEDS: traMADol HCl 50 MG TAB PO PRN (11:36)
--- NOTE | 2020-01-20 13:12 | PRG ---
DATE OF SERVICE: 01/20/2020 SUBJECTIVE: The patient is somewhat sleepy and sedated, on Tylenol No.3, and states this medicine is still too strong for her. OBJECTIVE: VITAL SIGNS: Her temperature is 98, pulse 95, respirations 18, O2 sats 94% on room air, blood pressure 150/86. LUNGS: Clear. CARDIAC: Regular rhythm. ABDOMEN: Soft and nontender. SKIN/EXTREMITIES: No edema, clubbing, or cyanosis. ASSESSMENT: 1. C1-C2 fracture, healing well. 2. Pain management with persistent sedation, on Tylenol No.3. 3. Hypertension, controlled to goal. 4. Atrial fibrillation, rate controlled. 5. Metabolic encephalopathy, resolved except when overly sedated. PLAN: 1. Stop Tylenol No.3. 2. Start tramadol 50 mg every 6 hours. 3. Discuss this with the patient. 4. Continue to monitor vital signs closely. 5. Continue oral intake monitoring. Job ID: [id number]
[2020-01-20] MEDS: Atorvastatin Calcium 20 MG TAB PO SCH (21:06)
[2020-01-20] MEDS: Lidocaine Patch Removal 1 EACH TOP SCH (21:12)
[2020-01-21] MEDS: Heparin 5,000 UNITS/ML VIAL SC SCH ×3 (05:49→22:52)
[2020-01-21] MEDS: traMADol HCl 50 MG TAB PO PRN ×2 (08:43→18:42)
[2020-01-21] MEDS: Gabapentin 100 MG CAP PO SCH ×3 (08:47→20:48)
[2020-01-21] MEDS: Ferrous Gluconate 324 MG TAB PO SCH (08:48)
[2020-01-21] MEDS: Sodium Chloride 1 GM TAB PO SCH ×2 (08:52→20:46)
[2020-01-21] MEDS: Aspirin 81 mg Enteric Coated Tablet PO SCH (08:52)
[2020-01-21] MEDS: Citalopram 20 MG TAB PO SCH (08:57)
[2020-01-21] MEDS: Sotalol HCl 80 MG TAB PO SCH ×2 (09:00→20:48)
[2020-01-21] MEDS: Digoxin 0.125 MG TAB PO SCH (09:01)
[2020-01-21] MEDS: Megestrol Acetate 400 MG/10 ML UDCUP PO SCH ×2 (09:02→20:49)
[2020-01-21] MEDS: Magnesium Oxide 400 MG TAB PO SCH ×2 (09:03→20:48)
[2020-01-21] MEDS: Lidocaine 5% Patch TD SCH (09:05)
[2020-01-21] MEDS: Atorvastatin Calcium 20 MG TAB PO SCH (20:47)
[2020-01-21] MEDS: Lidocaine Patch Removal 1 EACH TOP SCH (21:06)
[2020-01-22] MEDS: Heparin 5,000 UNITS/ML VIAL SC SCH ×3 (05:47→21:28)
[2020-01-22] MEDS: Magnesium Oxide 400 MG TAB PO SCH ×2 (09:24→21:21)
[2020-01-22] MEDS: Lidocaine 5% Patch TD SCH (09:24)
[2020-01-22] MEDS: Megestrol Acetate 400 MG/10 ML UDCUP PO SCH ×2 (09:24→21:21)
[2020-01-22] MEDS: Gabapentin 100 MG CAP PO SCH ×3 (09:25→21:40)
[2020-01-22] MEDS: traMADol HCl 50 MG TAB PO PRN (09:25)
[2020-01-22] MEDS: Ferrous Gluconate 324 MG TAB PO SCH (09:25)
[2020-01-22] MEDS: Digoxin 0.125 MG TAB PO SCH (09:25)
[2020-01-22] MEDS: Sotalol HCl 80 MG TAB PO SCH ×2 (09:25→21:21)
[2020-01-22] MEDS: Citalopram 20 MG TAB PO SCH (09:25)
[2020-01-22] MEDS: Aspirin 81 mg Enteric Coated Tablet PO SCH (09:26)
[2020-01-22] MEDS: Sodium Chloride 1 GM TAB PO SCH ×2 (09:26→21:22)
--- NOTE | 2020-01-22 16:12 | PRG ---
DATE OF SERVICE: 01/22/2020 SUBJECTIVE: The patient is sleeping this afternoon, unable to eat because of lethargy since taking tramadol this morning. She initially did well on the tramadol yesterday, but apparently today has become sedated with the tramadol and is not able to take during the day. She states that her neck pain is feeling better and she is not as sedated as she was on Tylenol No. 3 and agrees only nighttime tramadol. OBJECTIVE: VITAL SIGNS: Temperature 99, pulse 89, respirations 18, O2 saturations 97% on room air, and blood pressure 142/73. LUNGS: Decreased breath sounds. CARDIAC: Regular rhythm. ABDOMEN: Soft and nontender. ASSESSMENT: 1. Resolving cervical laminectomy with persistent pain, but with inability to tolerate analgesics. 2. Hypertension, controlled to goal. 3. Atrial fibrillation, rate controlled. PLAN: Change tramadol to only 50 mg at night as needed and continue Tylenol during the day for pain. Job ID: [id number]
[2020-01-22] MEDS ORDERED: traMADol HCl 50 MG TAB PO SCH (21:00)
[2020-01-22] MEDS: Atorvastatin Calcium 20 MG TAB PO SCH (21:21)
[2020-01-22] MEDS: Lidocaine Patch Removal 1 EACH TOP SCH (21:22)
[2020-01-23] MEDS: Heparin 5,000 UNITS/ML VIAL SC SCH ×3 (06:04→21:44)
[2020-01-23] MEDS: Ferrous Gluconate 324 MG TAB PO SCH (08:25)
[2020-01-23] MEDS: Aspirin 81 mg Enteric Coated Tablet PO SCH (08:25)
[2020-01-23] MEDS: Digoxin 0.125 MG TAB PO SCH (08:26)
[2020-01-23] MEDS: Gabapentin 100 MG CAP PO SCH ×3 (08:26→21:44)
[2020-01-23] MEDS: Citalopram 20 MG TAB PO SCH (08:26)
[2020-01-23] MEDS: Lidocaine 5% Patch TD SCH (08:27)
[2020-01-23] MEDS: Sodium Chloride 1 GM TAB PO SCH ×2 (08:27→21:44)
[2020-01-23] MEDS: Sotalol HCl 80 MG TAB PO SCH ×2 (08:27→21:44)
[2020-01-23] MEDS: Megestrol Acetate 400 MG/10 ML UDCUP PO SCH ×2 (08:27→21:44)
[2020-01-23] MEDS: Magnesium Oxide 400 MG TAB PO SCH ×2 (08:27→21:37)
[2020-01-23] MEDS: Cyclobenzaprine 10 MG TAB PO PRN (10:15)
[2020-01-23] MEDS: Acetaminophen 500 MG TAB PO PRN (17:02)
--- NOTE | 2020-01-23 18:10 | PRG ---
DATE OF SERVICE: 01/23/2020 SUBJECTIVE: Ms. Holliday is an 79-year-old white female, who fell at home. She had a resultant C1-C2 fracture with offset about 1 cm. Neurosurgery felt she did need surgery and placed her in a C-collar. She was transferred to inpatient rehab where she fell again. This time, there was significant offset of 2 cm and she was transferred to inpatient hospital at [facility] in [place]. She was seen by Dr. Wai Lobo, who did a posterior C1-C2 laminectomy. Postoperatively, she had quite a bit of pain and was transferred to [facility] for pain management, physical therapy, and occupational therapy. The patient has not been tolerant of pain medications over the weekend. Last week, I moved her from hydrocodone 5 mg p.r.n. up to t.i.d. down to Tylenol No.3 t.i.d. p.r.n. Over the weekend, Dr. Lloyd moved her to tramadol 50 mg, but that was even too strong as she is pretty much sleepy on that. She has not been taking any Flexeril. She has been taking gabapentin 200 mg and we stopped that also. We will hold all pain medications and muscle relaxers and I did decrease her gabapentin down to 100 mg t.i.d. We will see how she does with that. OBJECTIVE: VITAL SIGNS: Today reveal blood pressure 115/69 at lunch and 141/65 now, pulse 79-90, respirations 20, O2 saturation 92% to 95% on room air. GENERAL: On physical exam, this is a well-developed, well-nourished, thin white female, in no apparent distress at this time. HEENT: Normocephalic and nontraumatic cranium. Pupils equally round and reactive. Extraocular muscles intact. Nose and throat are slightly dry. NECK: Supple without masses, nodes, or bruits. CHEST: Clear to auscultation. No rales, rhonchi, wheezes, or cough is noted. HEART: Regular rate and rhythm, but the patient has chronic atrial fib that is rate controlled. ABDOMEN: Soft and nontender without organomegaly. Normal bowel sounds are noted. No rebound or guarding is noted. : Deferred. EXTREMITIES: No clubbing, cyanosis, or edema. ASSESSMENT: 1. Status post C1-C2 fracture, post laminectomy done at [facility] by Dr. Wai Lobo. 2. The patient is not tolerant of pain medications and they all are making her now sleepy and she is over-sedated. 3. Hypertension. 4. Coronary artery disease. 5. Anemia. 6. Chronic atrial fib, rate controlled. 7. Poor appetite, presently on Megace. 8. Hyperlipidemia. 9. Balance problems. PLAN: 1. We will stop the tramadol 50. 2. We will stop the p.r.n. Flexeril. 3. We will decrease her gabapentin to 100 mg t.i.d. 4. Continue to encourage the patient eat as well as she can. 5. Continue to monitor the patient's blood pressure closely and adjust medications if needed. 6. Monitor the patient's atrial fibrillation for RVR. 7. Stress ulcer prophylaxis. 8. Decubitus precautions. 9. Monitor the patient's anemia and renal status. 10. Continue physical therapy and occupational therapy. 11. Labs tomorrow to include CBC, comprehensive metabolic panel, and UA. Job ID: [id number]
[2020-01-23] MEDS: Atorvastatin Calcium 20 MG TAB PO SCH (21:44)
[2020-01-23] MEDS: Lidocaine Patch Removal 1 EACH TOP SCH (22:18)
[2020-01-24 05:17] LABS: #Monocytes 0.8 thou/uL (0.11-0.59); #Neutrophils 10.2 thou/uL (1.40-6.50); %Basophils 0.3 % (0.0-1.0); %Eosinophils 0.3 % (0.0-10.0); %Lymphocytes 8.6 % (21.0-51.0); %Monocytes 6.9 % (0.0-10.0); Hemoglobin 8.9 g/dL (12.0-16.0); Mean Corpuscular HGB CONC 33.4 g/dL (32.0-36.0); Mean Corpuscular Hemoglobin 28.8 pg (27.0-31.0); Mean Corpuscular Volume 86.2 fL (78.0-98.0); Mean Platelet Volume 5.4 fL (7.4-10.4); Platelet Count 400 thou/uL (130-400); RBC Distribution Width 15.4 % (11.5-14.5); Red Blood Cell (RBC) Count 3.09 mill/uL (4.20-5.40); White Blood Cell (WBC) Count 12.1 thou/uL (4.8-10.8)
[2020-01-24] MEDS: Ondansetron ODT 4 MG TAB PO PRN (05:28)
[2020-01-24] MEDS: Heparin 5,000 UNITS/ML VIAL SC SCH ×3 (05:33→21:30)
[2020-01-24 05:34] LABS: ALT (SGPT) 16 U/L (8-55); AST (SGOT) 14 U/L (5-34); Albumin 2.8 g/dL (3.4-4.8); Alkaline Phosphatase 68 U/L (40-110); Anion Gap 16 mmol/L (10-20); BUN (Urea Nitrogen) 16 mg/dL (9.8-20.1); Bilirubin, Total 1.5 mg/dL (0.2-1.2); Calc. Creatinine Clearance 52 mL/min (70-130); Calcium 9.1 mg/dL (7.8-10.44); Carbon Dioxide 18 mmol/L (23-31); Chloride 101 mmol/L (98-107); Estimated GFR-MDRD Greater than 90; Globulin 3.3 g/dL (2.4-3.5); Glucose 95 mg/dL (83-110); Potassium 3.9 mmol/L (3.5-5.1); Protein, Total 6.1 g/dL (6.0-8.3); Sodium 131 mmol/L (136-145)
[2020-01-24] MEDS: Citalopram 20 MG TAB PO SCH (08:14)
[2020-01-24] MEDS: Ferrous Gluconate 324 MG TAB PO SCH (08:14)
[2020-01-24] MEDS: Gabapentin 100 MG CAP PO SCH ×3 (08:15→20:39)
[2020-01-24] MEDS: Lidocaine 5% Patch TD SCH (08:15)
[2020-01-24] MEDS: Digoxin 0.125 MG TAB PO SCH (08:15)
[2020-01-24] MEDS: Magnesium Oxide 400 MG TAB PO SCH ×2 (08:15→20:40)
[2020-01-24] MEDS: Sodium Chloride 1 GM TAB PO SCH ×2 (08:16→20:39)
[2020-01-24] MEDS: Sotalol HCl 80 MG TAB PO SCH ×2 (08:16→21:01)
[2020-01-24] MEDS: Megestrol Acetate 400 MG/10 ML UDCUP PO SCH ×3 (08:16→21:01)
[2020-01-24] MEDS: Aspirin 81 mg Enteric Coated Tablet PO SCH (08:17)
[2020-01-24] MEDS: Acetaminophen 500 MG TAB PO PRN ×2 (08:19→20:43)
--- NOTE | 2020-01-24 13:15 | PRG ---
DATE OF SERVICE: 01/24/2020 SUBJECTIVE: Ms. Holliday is a well-developed 79-year-old white female who fell at home and had a resultant C1-C2 fracture with offset about 1 cm. Neurosurgery felt that she did not need surgery. They placed her in a C-collar, and she was transferred to inpatient rehab where she fell again. At this time, she had more offset up to 2 cm when she was transferred to [facility] in [place]. There, she was taken to the surgical suite by Dr. Wai Lobo who did a posterior C1-C2 laminectomy. Postoperatively, she was stabilized and transferred to inpatient rehab for physical therapy and occupational therapy and pain management. We have been gradually weaning the patient's pain medication down and it does not seem to affect her pain level at all. She is now on Tylenol and she says that works fairly well, but she is declining. She is not eating very well, even though we have her on Megace, and she is so sleepy during the day. We have cut out all of her narcotics and she is more alert today, but she is still wanting to sleep all the time. She is in danger of sleeping in her chair and falling out of it, so therefore we will put her back to bed, which contributes to her staying somewhat weaker. OBJECTIVE: VITAL SIGNS: Today reveal blood pressure 119/58, pulse 89, respirations 20, O2 saturation 92% on room air. HEENT: Reveals normocephalic and nontraumatic cranium. Pupils are equally round and reactive. Extraocular movements are intact. Nose and throat are slightly dry. NECK: Supple without masses, nodes, or bruits. CHEST: Clear to auscultation. No rales, rhonchi, or wheezes with occasional dry cough noted. HEART: Reveals a regular rate and rhythm, but the patient has chronic atrial fibrillation and it is rate controlled. ABDOMEN: Soft without organomegaly. Normal bowel sounds are noted in all 4 quadrants. No rebound or guarding is noted. The patient continues to have a poor appetite. GENITOURINARY: Deferred. EXTREMITIES: Reveal no clubbing, cyanosis, or edema. ASSESSMENT: 1. Continues to be very tired, lethargic, and sleepy even though she is not on any narcotics for greater than 36 hours. 2. Status post C1-C2 fracture, post posterior laminectomy and fusion done at [facility] by Dr. Wai Lobo. 3. The patient is intolerant of opioids because it makes her more sleepy. 4. Hypertension. 5. Coronary artery disease. 6. Anemia. 7. Chronic atrial fibrillation, rate controlled. 8. Poor appetite, continues to be on Megace. 9. Hyperlipidemia. 10. Balance problems. PLAN: 1. We did stop her tramadol. 2. We did stop her Flexeril. 3. Her gabapentin is 100 mg t.i.d. 4. We continued to encourage her to eat well, but she does poorly still. 5. We will continue to monitor the patient's blood pressure closely and adjust medications if needed. 6. The patient has atrial fibrillation, but she is very rate controlled. 7. Stress ulcer prophylaxis. 8. Decubitus precautions. 9. Continue to monitor the patient's anemia and renal status. 10. Continue physical therapy and occupational therapy. LABORATORY DATA: Today revealed white count is slightly elevated at 12,000, so we are going to check a urinalysis. Her anemia is stabilized and actually going back up. Hemoglobin is 8.9, hematocrit 26.6 Sodium is 131, which is down low and the patient is refusing her salt pills. Potassium is 3.9. Creatinine is still excellent at 0.56 with a GFR greater than 90. The patient's sugar is 95. The patient's liver enzymes are normal. The patient's albumin is slowly decreasing because of her poor dietary intake. Vitamin B12 is still okay, and folic acid is normal. TSH was 0.317. We will have a conference call with the family tomorrow. Job ID: [id number]
[2020-01-24 13:41] LABS: Bilirubin Small (Negative); Blood, Urine Negative (Negative); Clarity Clear (Clear); Glucose, Urine (Dipstick) Negative (Negative); Leukocyte Large (Negative); Nitrite Negative (Negative); Protein, Urine (Dipstick) Negative (Neg-Trace)
[2020-01-24 13:46] LABS: RBC/HPF None Seen HPF (0-3)
[2020-01-24 13:47] LABS: Bacteria/HPF 1+ HPF (None Seen); Squamous Epithelial 0-3 HPF (0-3)
[2020-01-24] MEDS: Atorvastatin Calcium 20 MG TAB PO SCH (20:40)
[2020-01-24] MEDS: Lidocaine Patch Removal 1 EACH TOP SCH (21:02)
[2020-01-25] MEDS: Heparin 5,000 UNITS/ML VIAL SC SCH ×3 (05:32→20:39)
[2020-01-25] MEDS: Acetaminophen 500 MG TAB PO PRN ×4 (05:35→20:40)
[2020-01-25] MEDS: Ferrous Gluconate 324 MG TAB PO SCH (08:33)
[2020-01-25] MEDS: Megestrol Acetate 400 MG/10 ML UDCUP PO SCH ×2 (08:33→20:39)
[2020-01-25] MEDS: Digoxin 0.125 MG TAB PO SCH (08:34)
[2020-01-25] MEDS: Gabapentin 100 MG CAP PO SCH ×3 (08:34→20:39)
[2020-01-25] MEDS: Sotalol HCl 80 MG TAB PO SCH ×2 (08:34→20:40)
[2020-01-25] MEDS: Citalopram 20 MG TAB PO SCH (08:34)
[2020-01-25] MEDS: Magnesium Oxide 400 MG TAB PO SCH ×2 (08:34→20:39)
[2020-01-25] MEDS: Sodium Chloride 1 GM TAB PO SCH ×2 (08:35→20:40)
[2020-01-25] MEDS: Aspirin 81 mg Enteric Coated Tablet PO SCH (08:35)
[2020-01-25] MEDS: Lidocaine 5% Patch TD SCH (08:36)
[2020-01-25] MEDS: Ondansetron ODT 4 MG TAB PO PRN (10:26)
--- NOTE | 2020-01-25 16:16 | PRG ---
DATE OF SERVICE: 01/25/2020 SUBJECTIVE: Ms. Holliday is an 79-year-old white female, who fell at home, had a resultant C1-C2 fracture with a 1 cm offset. Neurosurgery at [facility] and [facility]vinash felt like she did not need the surgery, so she was placed in C-collar and transferred to inpatient rehab. Unfortunately, she fell again and she states that she was then sent to a hospital in [place] where they were unable to do the surgery. She was then transferred to see Dr. Wai Lobo at [facility] in [place] where he did a posterior C1-C2 laminectomy. Postoperatively , she was stabilized and transferred to inpatient rehab here at [facility] for physical therapy, occupational therapy and pain management. Subjectively, the patient was transferred here on oxycodone 10 mg, which was too strong, q.4 hours, and then we weaned it down to t.i.d. p.r.n., then weaned it over to hydrocodone 5 mg t.i.d. p.r.n. because she states that chronically she is on 10 mg at home, which I thought was a large dose. She states she took the 10 mg hydrocodone t.i.d. but only took it two times a days and occasionally three times a day. The 5 mg still made her too sleepy and nauseated, so after the hydrocodone , we weaned her to Tylenol No.3, which still made her sleepy and nauseated, so we weaned her off to tramadol 50 with Tylenol. We weaned her off the tramadol now and she is now on the Tylenol and doing much better because she is much more alert and her pain control is still the same. Had a lengthy discussion today because she wanted to have a conference call about how long she could stay here. She was told that when she moved here, she could stay as long as there was COVID-19 activity in the area and we would not discharge her. Now, she claims that we were trying to throw her out. I informed her that as long as she continues to progress in her therapy that she could stay, but if she continues regressing, she would have to move to a different facility. Physical Therapy and Occupational Therapy had a meeting yesterday and said that even though she did not do very well this past week with her therapy, they would give her another week of therapy now that she is off pretty much all narcotics to see how well she would do if she was started progressing again. OBJECTIVE: VITAL SIGNS: Today reveal blood pressure 134/64, pulse 95 to 115, oxygen saturation 95% on room air, T-max 96.4. GENERAL: This is a well-developed, thin, white female, in no apparent distress at this time. She is quite upset because she thinks that we are kicking her out and that we promised to keep her here as long as the COVID was in the area. NECK: Supple without masses, nodes, or bruits. CHEST: Clear to auscultation. No rales, rhonchi, wheezes, or cough is heard. HEART: Reveals a regular rate and rhythm, which is rate controlled. The patient does have chronic atrial fibrillation. ABDOMEN: Soft, nontender without organomegaly. Normal bowel sounds are noted in all 4 quadrants. No rebound or guarding is noted. The patient continues to have poor appetite. Yesterday, the patient ate 25% of breakfast, 5% of lunch, and supper was not documented. This morning the patient had 50% of breakfast, but she had no lunch so far today. On Thursday, she had 50% of breakfast, no documentation on lunch and 25% of supper. The patient is able to walk today about 50 feet. LABORATORY DATA: The patient's last labs revealed her H and H were stable and slightly improved. Her creatinine is still excellent at 0.56. The patient's albumin is slowly decreased from 3.3, the following week 3.2 and this week 2.8. The patient did have a pre-albumin which measured to be 7, where greater than 14 is normal. I had spent an inordinate amount of discussion today encouraging her to try to eat better, which she said she would, but again she is not eating any much today and does not look like she will eat much of her lunch. ASSESSMENT: 1. The patient is completely off her narcotics at this time. 2. The patient continues to be somewhat sleepy and had some nausea this morning and that is why she states she did not eat. 3. The patient does have Zofran ordered p.r.n. 4. Status post C1-C2 fracture, post posterior laminectomy fusion done at [facility] by Dr. Wai Lobo. 5. Hypertension. 6. Coronary artery disease. 7. Anemia. 8. Chronic atrial fibrillation. 9. Malnutrition. 10. Poor appetite, but she continues to be on Megace. 11. Hyperlipidemia. 12. Generalized weakness. PLAN: 1. Continue the patient off all narcotics. 2. Continue the patient off muscle relaxers. 3. The patient on gabapentin 100 mg t.i.d., which seems to help her. 4. Encourage the patient to continue to eat well and continue to give her Megace. 5. The patient's sodium is slightly low at 132 mg and she continues to take salt tablets to keep it at least there. She did state that she only refuses salt tablets once. 6. Continue to monitor the patient's atrial fib for RVR. 7. Continue to monitor the patient's blood pressure closely and adjust the medications as needed. 8. Stress ulcer prophylaxis. 9. Decubitus precautions. 10. Continue to monitor the patient's anemia and renal status. 11. Continue physical therapy and occupational therapy. Job ID: [id number] [facility]
[2020-01-25] MEDS: Nitrofurantoin Monohyd/M-Cryst 100 MG CAP PO SCH (20:39)
[2020-01-25] MEDS: Lidocaine Patch Removal 1 EACH TOP SCH (20:40)
[2020-01-25] MEDS: Atorvastatin Calcium 20 MG TAB PO SCH (20:40)
[2020-01-26] MEDS: Heparin 5,000 UNITS/ML VIAL SC SCH ×3 (06:17→21:06)
[2020-01-26] MEDS: Acetaminophen 500 MG TAB PO PRN ×3 (08:17→21:10)
[2020-01-26] MEDS: Magnesium Oxide 400 MG TAB PO SCH (08:17)
[2020-01-26] MEDS: Megestrol Acetate 400 MG/10 ML UDCUP PO SCH ×2 (08:17→21:06)
[2020-01-26] MEDS: Gabapentin 100 MG CAP PO SCH ×3 (08:18→21:10)
[2020-01-26] MEDS: Nitrofurantoin Monohyd/M-Cryst 100 MG CAP PO SCH ×2 (08:18→21:10)
[2020-01-26] MEDS: Citalopram 20 MG TAB PO SCH (08:18)
[2020-01-26] MEDS: Ferrous Gluconate 324 MG TAB PO SCH (08:18)
[2020-01-26] MEDS: Sotalol HCl 80 MG TAB PO SCH ×2 (08:18→21:10)
[2020-01-26] MEDS: Digoxin 0.125 MG TAB PO SCH (08:18)
[2020-01-26] MEDS: Sodium Chloride 1 GM TAB PO SCH ×2 (08:18→21:10)
[2020-01-26] MEDS: Aspirin 81 mg Enteric Coated Tablet PO SCH (08:19)
[2020-01-26] MEDS: Lidocaine 5% Patch TD SCH (08:20)
[2020-01-26] MEDS ORDERED: Loperamide HCl 2 MG CAP PO SCH (14:00)
[2020-01-26] MEDS: Atorvastatin Calcium 20 MG TAB PO SCH (21:10)
[2020-01-26] MEDS: Lidocaine Patch Removal 1 EACH TOP SCH (21:11)
--- NOTE | 2020-01-26 21:20 | PRG ---
DATE OF SERVICE: 01/26/2020 SUBJECTIVE: Ms. Holliday is an 79-year-old white female, who fell at home and had a C1-C2 fracture with 1 cm offset. Neurosurgery at [facility]vinash felt that she could be cared for nonsurgically. She was placed in C-collar and transferred to inpatient rehab. At inpatient rehab, she fell again and at this time had 2 cm offset in which she was stabilized and she states she was transferred to the hospital in [place]. There, she reported that they were unable to do the type of surgery that she needs, so they transferred her to Dr. Wai Lobo at [facility] in [place]. He did a posterior C1-C2 laminectomy. Postoperatively, she was stabilized and transferred to [facility] for physical therapy, occupational therapy, and pain management. We had a lengthy discussion yesterday because the patient is not progressing and not eating and her pre-albumin was noted to be 7 with her sodium down to 131. We requested that she start eating better and putting more effort into her therapy and taking all of her medications and not refusing. She seemed to have a much better day today. OBJECTIVE: VITAL SIGNS: Today revealed blood pressure 157/72, pulse 83 to 94, respirations 19, O2 saturation 95% on room air, and T-max 98.3. GENERAL: This is a well-developed, well-nourished, very wiry and awake and alert white female, in no apparent distress at this time. HEENT: Reveals normocephalic and nontraumatic cranium. Pupils are equally round and reactive. Extraocular movements intact. Nose and throat are slightly dry. NECK: Supple without masses, nodes, or bruits. C-collar is in place. CHEST: Clear to auscultation. No rales, rhonchi, or wheezes are noted. HEART: Reveals a chronic atrial fibrillation, but she is actually rate controlled. ABDOMEN: Soft and nontender without organomegaly. Normal bowel sounds are noted. No rebound or guarding is noted. NEUROLOGIC: The patient had a wonderful day in physical therapy today because she walked 150 feet rested, 140 feet rested, 230 feet rested, and then 180 feet. She is still not eating any of her supper and it is 8:46, where she probably will not eat at all, but I did encourage her to eat or at least eat some snacks. ASSESSMENT: 1. Much improved therapy today. 2. The patient is completely off all her narcotics and is tolerating pain and did not complain about it today at all. 3. Still continues to be somewhat sleepy. 4. Still continues to be nauseated and states that is why she is not eating. 5. Had an episode of watery diarrhea today and got one Imodium A-D. 6. Status post C1-C2 fracture post surgical laminectomy done at [facility] by Dr. Wai Lobo. 7. Hypertension. 8. Coronary artery disease. 9. Anemia. 10. Chronic atrial fibrillation. 11. Malnutrition. 12. Poor appetite, but on Megace. 13. Hyperlipidemia. 14. Generalized weakness. PLAN: 1. We will continue to keep the patient off the narcotics. 2. Keep the patient off muscle relaxers and sleeping pills. 3. Continue gabapentin t.i.d. 4. Encourage the patient to eat well and continue her Megace. 5. Continue to encourage the patient to take her salt pills. 6. Monitor the patient's atrial fibrillation for RVR. 7. We did move some of her medicines around so she takes her Mag-Ox and her ferrous sulfate in the evening rather than in the morning because she complains of nausea with those medications. 8. Continue to monitor the patient's blood pressure closely. 9. Stress ulcer prophylaxis. 10. Decubitus precautions. 11. Lab work tomorrow. We will monitor the patient's anemia, renal status, dig levels. 12. Continue PT and OT. Job ID: [id number]
[2020-01-27 05:54] LABS: #Lymphocytes 0.8 thou/uL (1.20-3.40); #Monocytes 0.6 thou/uL (0.11-0.59); #Neutrophils 9.4 thou/uL (1.40-6.50); %Basophils 0.2 % (0.0-1.0); %Eosinophils 0.4 % (0.0-10.0); %Lymphocytes 7.1 % (21.0-51.0); %Monocytes 5.4 % (0.0-10.0); Mean Corpuscular Hemoglobin 28.5 pg (27.0-31.0); Mean Corpuscular Volume 86.3 fL (78.0-98.0); Mean Platelet Volume 5.1 fL (7.4-10.4); Platelet Count 344 thou/uL (130-400); RBC Distribution Width 15.2 % (11.5-14.5); White Blood Cell (WBC) Count 10.8 thou/uL (4.8-10.8)
[2020-01-27] MEDS: Heparin 5,000 UNITS/ML VIAL SC SCH ×3 (05:59→21:02)
[2020-01-27 06:10] LABS: Digoxin 0.78 ng/mL (0.8-2.0)
[2020-01-27 06:15] LABS: ALT (SGPT) 16 U/L (8-55); AST (SGOT) 16 U/L (5-34); Albumin 2.6 g/dL (3.4-4.8); Alkaline Phosphatase 70 U/L (40-110); Anion Gap 12 mmol/L (10-20); BUN (Urea Nitrogen) 11 mg/dL (9.8-20.1); Bilirubin, Total 0.7 mg/dL (0.2-1.2); Calc. Creatinine Clearance 56 mL/min (70-130); Calcium 8.9 mg/dL (7.8-10.44); Carbon Dioxide 23 mmol/L (23-31); Chloride 102 mmol/L (98-107); Estimated GFR-MDRD Greater than 90; Globulin 3.2 g/dL (2.4-3.5); Glucose 85 mg/dL (83-110); Magnesium 1.5 mg/dL (1.6-2.6); Potassium 3.7 mmol/L (3.5-5.1); Protein, Total 5.8 g/dL (6.0-8.3); Sodium 133 mmol/L (136-145)
[2020-01-27] MEDS: Lidocaine 5% Patch TD SCH (08:32)
[2020-01-27] MEDS: Sotalol HCl 80 MG TAB PO SCH ×2 (08:32→21:05)
[2020-01-27] MEDS: Citalopram 20 MG TAB PO SCH (08:32)
[2020-01-27] MEDS: Gabapentin 100 MG CAP PO SCH ×3 (08:32→21:06)
[2020-01-27] MEDS: Megestrol Acetate 400 MG/10 ML UDCUP PO SCH ×2 (08:32→21:02)
[2020-01-27] MEDS: Nitrofurantoin Monohyd/M-Cryst 100 MG CAP PO SCH ×2 (08:32→21:06)
[2020-01-27] MEDS: Acetaminophen 500 MG TAB PO PRN ×2 (08:33→21:06)
[2020-01-27] MEDS: Aspirin 81 mg Enteric Coated Tablet PO SCH (08:33)
[2020-01-27] MEDS: Sodium Chloride 1 GM TAB PO SCH ×2 (08:33→21:02)
[2020-01-27] MEDS ORDERED: Magnesium Oxide 400 MG TAB PO SCH (09:00)
[2020-01-27] MEDS: Loperamide HCl 2 MG CAP PO PRN (13:22)
[2020-01-27] MEDS: Digoxin 0.125 MG TAB PO SCH (16:28)
--- NOTE | 2020-01-27 16:28 | PRG ---
DATE OF SERVICE: 01/27/2020 SUBJECTIVE: Ms. Holliday is an 79-year-old white female, who fell at home, had a C1 -C2 fracture with a 1 cm offset. She was seen by Neurosurgery at [facility] and felt that she could be cared for nonsurgically. She was placed in C-collar and transferred to inpatient rehab. At inpatient rehab, she fell again and at this time, had a 2 cm offset. She was transferred to hospital in [place], where she reports that they were unable to do this type of surgery that she needed. She states then they transferred her to [facility], where Dr. Wai Lobo did a posterior C1-C2 laminectomy. Postoperatively, she was stabilized and transferred to [facility] because of physical therapy, occupational therapy, and pain management. The patient over the last 2 days, since she has been off her narcotics, has done so much better. She is not complaining of pain. She still is not eating well enough, but she is eating better. She is on Megace 400 mg b.i.d. She states she had a much better day and she is very pleased with the progress, especially today. OBJECTIVE: VITAL SIGNS: Today reveal blood pressure of 144/63, pulse 80 to 83, respirations 18, O2 saturations 94% on room air, T-max 98.4. GENERAL: This is a well-developed, well-nourished, thin white female, in no apparent distress at this time. HEENT: Reveals normocephalic and nontraumatic cranium. Pupils are equal, round , and reactive. Extraocular movements are intact. Nose and throat are slightly dry. NECK: Supple without masses, nodes, or bruits. CHEST: Clear to auscultation. No rales, rhonchi, wheezes, or cough is heard. HEART: Reveals chronic atrial fib, but she is actually very well rate controlled. ABDOMEN: Soft and nontender without organomegaly. Normal bowel sounds are noted. No rebound or guarding is noted. : Deferred. EXTREMITIES: Reveal no clubbing, cyanosis, or edema. NEUROLOGIC: The patient did well and walked 12 feet, then 230 feet, then 250 feet today. Her stamina is much improved. She has no focal weaknesses. She just has generalized weakness. She is beginning to eat little bit better. She ate 75% of her supper last night after I saw her. ASSESSMENT: 1. Continues to improve in therapy. 2. The patient is completely off her narcotics and we will not restart any narcotics or muscle relaxants. 3. The patient continues to stay somewhat sleepy, but seems to be little bit more alert. 4. The patient does not complain of nauseous today. 5. The patient had watery diarrhea yesterday, had none in this morning. 6. Status post C1-C2 posterior fracture with postsurgical laminectomy done at [facility] by Dr. Wai Lobo. 7. Hypertension. 8. Coronary artery disease. 9. Anemia. 10. Chronic atrial fibrillation. 11. Malnutrition, on Megace, improving. 12. Hyperlipidemia. 13. Generalized weakness. PLAN: 1. We will continue to keep the patient off her narcotics. 2. Keep the patient out of bed as much as possible. 3. Keep the patient off muscle relaxants and sleeping pills. 4. Continue gabapentin 100 mg t.i.d. 5. Encourage the patient to eat well and continue Megace. 6. Encourage the patient to continue taking salt pills. 7. Monitor the patient's atrial fibrillation for RVR. 8. Monitor the patient's blood pressure closely. 9. Stress ulcer prophylaxis. 10. Decubitus precautions. 11. Continue physical therapy and occupational therapy. Job ID: [id number] [facility]
[2020-01-27] MEDS: Ferrous Gluconate 324 MG TAB PO SCH (16:29)
[2020-01-27] MEDS: Atorvastatin Calcium 20 MG TAB PO SCH (21:05)
[2020-01-27] MEDS: Magnesium Oxide 400 MG TAB PO SCH (21:06)
[2020-01-27] MEDS: Lidocaine Patch Removal 1 EACH TOP SCH (21:06)
[2020-01-28] MEDS: Heparin 5,000 UNITS/ML VIAL SC SCH ×3 (05:45→20:49)
[2020-01-28] MEDS: Gabapentin 100 MG CAP PO SCH ×3 (07:39→20:50)
[2020-01-28] MEDS: Megestrol Acetate 400 MG/10 ML UDCUP PO SCH ×2 (07:39→20:49)
[2020-01-28] MEDS: Lidocaine 5% Patch TD SCH (07:39)
[2020-01-28] MEDS: Acetaminophen 500 MG TAB PO PRN ×3 (07:39→20:50)
[2020-01-28] MEDS: Aspirin 81 mg Enteric Coated Tablet PO SCH (07:39)
[2020-01-28] MEDS: Nitrofurantoin Monohyd/M-Cryst 100 MG CAP PO SCH ×2 (08:44→20:50)
[2020-01-28] MEDS: Citalopram 20 MG TAB PO SCH (08:44)
[2020-01-28] MEDS: Sotalol HCl 80 MG TAB PO SCH ×2 (08:44→20:50)
[2020-01-28] MEDS: Sodium Chloride 1 GM TAB PO SCH ×2 (08:46→20:51)
--- NOTE | 2020-01-28 15:35 | PRG ---
DATE OF SERVICE: 01/28/2020 SUBJECTIVE: Ms. Holliday is up in her chair, eating lunch. She denies any questions or concerns. She states that her diarrhea has resolved. OBJECTIVE: VITAL SIGNS: She is afebrile. Heart rate 88, respirations 16, oxygen saturation 94% on room air, blood pressure 119/57. CARDIOVASCULAR: S1, S2 plus. RESPIRATORY: Normal vesicular breath sounds. ABDOMEN: Soft, nontender. Bowel sounds heard in all quadrants. EXTREMITIES: Without cyanosis or clubbing. Hard cervical collar in place. CENTRAL NERVOUS SYSTEM: Improving weakness. IMPRESSION: 1. Cervical spine fracture requiring surgical fixation. 2. Hyponatremia, improving. 3. Hypertension. 4. Dyslipidemia. 5. Coronary artery disease. 6. Deconditioning. PLAN: 1. Continue current medications. 2. Heart-healthy diet. 3. Spinal precautions. 4. Physical therapy. 5. DVT and stress ulcer prophylaxis. 6. Routine laboratory values. Job ID: [id number]
[2020-01-28] MEDS: Ferrous Gluconate 324 MG TAB PO SCH (16:57)
[2020-01-28] MEDS: Digoxin 0.125 MG TAB PO SCH (16:57)
[2020-01-28] MEDS: Magnesium Oxide 400 MG TAB PO SCH (20:50)
[2020-01-28] MEDS: Lidocaine Patch Removal 1 EACH TOP SCH (20:50)
[2020-01-28] MEDS: Atorvastatin Calcium 20 MG TAB PO SCH (20:50)
[2020-01-29] MEDS: Megestrol Acetate 400 MG/10 ML UDCUP PO SCH ×3 (04:58→21:04)
[2020-01-29] MEDS: Magnesium Oxide 400 MG TAB PO SCH ×2 (05:00→21:05)
[2020-01-29] MEDS: Sodium Chloride 1 GM TAB PO SCH ×3 (05:01→21:06)
[2020-01-29] MEDS: Heparin 5,000 UNITS/ML VIAL SC SCH ×3 (05:38→21:05)
[2020-01-29] MEDS: Lidocaine 5% Patch TD SCH (08:46)
[2020-01-29] MEDS: Gabapentin 100 MG CAP PO SCH ×3 (08:47→21:05)
[2020-01-29] MEDS: Nitrofurantoin Monohyd/M-Cryst 100 MG CAP PO SCH ×2 (08:47→21:05)
[2020-01-29] MEDS: Citalopram 20 MG TAB PO SCH (08:47)
[2020-01-29] MEDS: Sotalol HCl 80 MG TAB PO SCH ×2 (08:47→21:05)
[2020-01-29] MEDS: Acetaminophen 500 MG TAB PO PRN ×3 (08:48→21:05)
[2020-01-29] MEDS: Aspirin 81 mg Enteric Coated Tablet PO SCH (08:48)
--- NOTE | 2020-01-29 10:51 | PRG ---
DATE OF SERVICE: 01/29/2020 SUBJECTIVE: Ms. Holliday is up in her chair and denies any complaints. She continues to complain of nausea and she states she is taking too much medications. I tried to advise her that as she felt it was the salt tablets, to try and take it with food. I told her that her sodium is improving, but it is still low. She is going to talk with Dr. Ibrahim tomorrow about her medications. OBJECTIVE: VITAL SIGNS: She is afebrile. Heart rate is 80, respirations 16, oxygen saturation 94% on room air, blood pressure 158/72. CARDIOVASCULAR: S1, S2 plus. RESPIRATORY: Normal vesicular breath sounds. ABDOMEN: Soft, nontender, bowel sounds in all quadrants. EXTREMITIES: Without cyanosis or clubbing. CENTRAL NERVOUS SYSTEM: Grossly nonfocal. IMPRESSION: 1. Cervical spine fracture requiring surgical fixation. 2. Hyponatremia. 3. Hypertension. 4. Dyslipidemia. 5. Coronary artery disease. 6. Deconditioning. PLAN: 1. Recheck CBC and BMP tomorrow. 2. Continue current medications. 3. Heart healthy diet. 4. Neurosurgical precautions. 5. DVT and stress ulcer prophylaxis. 6. Decubitus precautions. 7. Dr. Ibrahim back [facility]. Job ID: [id number]
[2020-01-29] MEDS: Ferrous Gluconate 324 MG TAB PO SCH (17:10)
[2020-01-29] MEDS: Digoxin 0.125 MG TAB PO SCH (17:10)
[2020-01-29] MEDS: Atorvastatin Calcium 20 MG TAB PO SCH (21:05)
[2020-01-29] MEDS: Lidocaine Patch Removal 1 EACH TOP SCH (21:06)
[2020-01-30 05:18] LABS: #Lymphocytes 0.8 thou/uL (1.20-3.40); #Monocytes 0.6 thou/uL (0.11-0.59); %Basophils 0.3 % (0.0-1.0); %Eosinophils 0.4 % (0.0-10.0); %Lymphocytes 7.8 % (21.0-51.0); %Monocytes 6.1 % (0.0-10.0); %Neutrophils 85.4 % (42.0-75.0); Hemoglobin 8.8 g/dL (12.0-16.0); Mean Corpuscular HGB CONC 33.8 g/dL (32.0-36.0); Mean Corpuscular Hemoglobin 28.6 pg (27.0-31.0); Mean Corpuscular Volume 84.7 fL (78.0-98.0); Mean Platelet Volume 5.1 fL (7.4-10.4); Platelet Count 409 thou/uL (130-400); RBC Distribution Width 14.8 % (11.5-14.5); Red Blood Cell (RBC) Count 3.07 mill/uL (4.20-5.40); White Blood Cell (WBC) Count 10.5 thou/uL (4.8-10.8)
[2020-01-30] MEDS: Heparin 5,000 UNITS/ML VIAL SC SCH ×3 (05:31→21:13)
[2020-01-30 05:37] LABS: Anion Gap 13 mmol/L (10-20); BUN (Urea Nitrogen) 12 mg/dL (9.8-20.1); Calc. Creatinine Clearance 52 mL/min (70-130); Calcium 9.2 mg/dL (7.8-10.44); Carbon Dioxide 22 mmol/L (23-31); Chloride 96 mmol/L (98-107); Estimated GFR-MDRD Greater than 90; Glucose 89 mg/dL (83-110); Potassium 4.1 mmol/L (3.5-5.1); Sodium 127 mmol/L (136-145)
[2020-01-30] MEDS: Acetaminophen 500 MG TAB PO PRN ×3 (05:41→21:12)
[2020-01-30] MEDS: Megestrol Acetate 400 MG/10 ML UDCUP PO SCH ×2 (06:12→08:47)
[2020-01-30] MEDS: Sodium Chloride 1 GM TAB PO SCH ×3 (06:21→21:11)
[2020-01-30] MEDS: Aspirin 81 mg Enteric Coated Tablet PO SCH (08:46)
[2020-01-30] MEDS: Sotalol HCl 80 MG TAB PO SCH ×2 (08:47→21:13)
[2020-01-30] MEDS: Citalopram 20 MG TAB PO SCH (08:47)
[2020-01-30] MEDS: Nitrofurantoin Monohyd/M-Cryst 100 MG CAP PO SCH ×2 (08:47→21:13)
[2020-01-30] MEDS: Lidocaine 5% Patch TD SCH (08:47)
[2020-01-30] MEDS: Gabapentin 100 MG CAP PO SCH (08:47)
[2020-01-30] MEDS: Ondansetron ODT 4 MG TAB PO PRN (09:38)
--- NOTE | 2020-01-30 13:49 | PRG ---
DATE OF SERVICE: 01/30/2020 SUBJECTIVE: Ms. Holliday is an 79-year-old white female, who fell at home and had a C1-C2, 1 cm offset fracture. She was seen at [facility] Neuro[facility] ER and felt that she could be cared for nonsurgically. She was placed in C-collar and transferred to inpatient rehab. Unfortunately, she fell again at rehab and had a 2 cm offset at the same location. She was transferred to hospital in [place], where she reports that they did not have a surgeon who was able to do that type of surgery. She was then transferred to [facility], where Dr. Wai Lobo did a posterior C1-C2 laminectomy. Postoperatively, she was stabilized and transferred to [facility] because of physical therapy and occupational therapy and pain management. The patient over the weekend was seen by Dr. Tsang. She had multiple complaints about her medications and actually this morning refused all of her medications except for her Tylenol and her diltiazem 60 q.8 hours. She was adamant about not taking any more medications, but we did talk with her and told her I would decrease her medications and just put the absolute minimal necessity. We discussed all of her medications and decided that we would stop her 81 mg of aspirin a day. She also would refuse her atorvastatin 20 mg at bedtime, her citalopram 40 mg daily, her diltiazem 60 mg q.8 hours which we will try to substitute to 120 mg CD once a day, her ferrous gluconate once a day, her gabapentin 3 times a day, her magnesium oxide once a day, and her Megace twice a day. We will also stop her Protonix 40 mg. We will try to get her to take her Tylenol 500 mg q.4 p.r.n. pain, her digoxin 0.125 every evening, her diltiazem CD 120 daily, her heparin 5000 units subcu q.8 hours, her Lidoderm patch, her Macrobid 100 mg twice a day, her sodium chloride 2 g twice a day with meals, her sotalol 80 mg every 12 hours. OBJECTIVE: GENERAL: This is a well-developed, well-nourished, thin white female, who states she is not going to take all these pills. I did have a long meeting with her and we will try to agree on some of the medications. Unfortunately, the patient does not want to take her sodium pills. Her sodium this morning is 127, so I encouraged her to try to take them after her meals, but she states they make her nauseated. We will do a fluid restriction on her and see if that will help bring her sodium up. HEENT: Normocephalic and nontraumatic cranium. Pupils are equally round and reactive. Extraocular movements are intact. Nose and throat are slightly dry. NECK: Supple without masses, nodes, or bruits. CHEST: Clear to auscultation. No rales, rhonchi, wheezes, or cough is heard. HEART: Reveals chronic atrial fibrillation, but she actually is rate controlled. ABDOMEN: Soft and nontender without organomegaly. Normal bowel sounds are noted. No rebound or guarding is noted. : Deferred. EXTREMITIES: Reveal no clubbing, cyanosis, or edema. NEUROLOGIC: The patient did not get out of bed today for her physical therapy. She did walk very well on Thursday. The patient refused her Megace. I told her if she eats 50% of all of her meals, we would not restart it. ASSESSMENT: 1. Irritable, very demanding this morning. 2. Off her narcotics. 3. Status post C1-C2 posterior fracture with postsurgical laminectomy done by Dr. Wai Lobo, [facility]. 4. Hypertension. 5. Coronary artery disease. 6. Anemia. 7. Hyponatremia. 8. Chronic atrial fibrillation. 9. Malnutrition, presently refusing Megace. 10. Hyperlipidemia. 11. Generalized weakness. PLAN: 1. We will stop her atorvastatin, her gabapentin, her Megace, her Protonix, her aspirin, her citalopram, her diltiazem 60 mg three times a day and move it to diltiazem CR 120 once a day. 2. Keep the patient out of bed as much as possible. 3. Keep the patient off muscle relaxants, sleeping pills, and narcotics. 4. Encourage the patient to eat 50% of her meals, so she does not have to restart her Megace. 5. Encourage the patient to continue taking her salt pills. 6. Monitor the patient's atrial fibrillation for RVR. 7. Monitor the patient's blood pressure. 8. Stress ulcer prophylaxis. 9. Decubitus precautions. 10. Continue physical therapy and occupational therapy. Job ID: [id number]
[2020-01-30] MEDS ORDERED: Citalopram 20 MG TAB PO SCH (14:45)
[2020-01-30] MEDS: Digoxin 0.125 MG TAB PO SCH (17:38)
[2020-01-30] MEDS: Lidocaine Patch Removal 1 EACH TOP SCH (21:10)
[2020-01-31] MEDS: Heparin 5,000 UNITS/ML VIAL SC SCH ×3 (05:29→21:24)
[2020-01-31] MEDS: Sodium Chloride 1 GM TAB PO SCH ×3 (06:08→21:24)
[2020-01-31] MEDS: Nitrofurantoin Monohyd/M-Cryst 100 MG CAP PO SCH ×3 (06:10→21:23)
[2020-01-31] MEDS: Lidocaine 5% Patch TD SCH (08:37)
[2020-01-31] MEDS: Citalopram 20 MG TAB PO SCH (08:39)
[2020-01-31] MEDS: Sotalol HCl 80 MG TAB PO SCH ×2 (08:40→21:24)
[2020-01-31] MEDS: Acetaminophen 500 MG TAB PO PRN ×3 (08:49→21:24)
[2020-01-31] MEDS: Digoxin 0.125 MG TAB PO SCH (17:44)
[2020-01-31] MEDS: Lidocaine Patch Removal 1 EACH TOP SCH (21:24)
[2020-02-01] MEDS: Heparin 5,000 UNITS/ML VIAL SC SCH ×3 (05:48→21:21)
--- NOTE | 2020-02-01 06:32 | PRG ---
DATE OF SERVICE: 01/31/2020 SUBJECTIVE: Ms. Holliday is an 79-year-old white female, who fell at home and had a C1-C2, 1 cm offset neck fracture. She was seen at [facility] and was thought to be nonsurgical. She was placed in C-collar and transferred to rehab inpatient. Unfortunately, she fell at rehab and this time, had a 2 cm offset at the same neck fracture. She was transferred to hospital in [place], but unfortunately when she got there, the surgeon there was unable to do that type of neck surgery. She was transferred to [facility] [place] [place] in [facility], where Dr. Wai Brooks did a posterior C1-C2 laminectomy. Postoperatively, she was stabilized and eventually transferred to [facility] for physical therapy, occupational therapy, and pain management. The patient's medications have decreased from oxycodone to hydrocodone to Tylenol #3 to tramadol, now to just plain Tylenol. She seems to be doing very well. Unfortunately, the patient is very unhappy about taking so many pills and actually stopped taking any medicine, refusing her pills. She said she would not take any more pills until we reduced her medication list. We talked about multiple medications and she is unwilling to take much of anything. I did stop multiple medications, which include the following; 1. Magnesium oxide 1 pill b.i.d. 2. Atorvastatin 20 mg daily. 3. Aspirin 81 mg daily. 4. Citalopram 40 mg daily. 5. Gabapentin 100 mg three times a day. We did continue the following medications; 1. Digoxin 0.125 daily. 2. Diltiazem was switched from 60 mg q.8 hours to 120 mg once a day CD. 3. The patient's Macrobid 100 mg b.i.d. will continue for full 7 days. 4. The patient will continue 2 g of sodium b.i.d. with meals and Sotalol 80 mg q.12 hours. OBJECTIVE: VITAL SIGNS: Today reveal blood pressure 139/69 to 122/73, pulse is 86 to 107, respirations 18 with O2 saturations 94% to 95% on room air. T-max is 97.6. GENERAL: This is a well-developed, well-nourished, thin white female, in no apparent distress at this time. HEENT: Reveals normocephalic and nontraumatic cranium. Pupils are equally round and reactive. Extraocular movements are intact. Nose and throat are slightly dry. NECK: Supple without masses, nodes, or bruits. CHEST: Clear to auscultation. No rales, rhonchi, wheezes, or cough is heard. HEART: Reveals a regular rate and rhythm without murmurs, gallops, or rubs. It is noted the patient has chronic atrial fibrillation and she is rate controlled. ABDOMEN: Soft and nontender without organomegaly. Normal bowel sounds are noted in all 4 quadrants. No rebound or guarding is noted. : Deferred. EXTREMITIES: Reveal no clubbing, cyanosis, or edema. NEUROLOGIC: The patient has not had therapy yet this morning, is not out of bed yet. The patient also has refused her Megace. ASSESSMENT: 1. Irritable and demanding about not taking medications unless we decrease the number of medications she is on. 2. She is off all her narcotics. 3. She is status post C1-C2 posterior fracture with postsurgical laminectomy done by Dr. Wai Brooks at [facility] [place] in [place]. 4. Hypertension. 5. Coronary artery disease. 6. Anemia. 7. Hyponatremia. 8. Chronic atrial fibrillation, which is rate controlled. 9. Malnutrition. 10. Hyperlipidemia. 11. Generalized weakness. PLAN: 1. The patient has been stopped on her atorvastatin, gabapentin, Megace, Protonix, aspirin, citalopram. Diltiazem 60 mg three times a day has been moved to diltiazem CD 120 once a day. 2. Encourage the patient to stay out of bed as much as possible. 3. Keep the patient off any narcotics, sleeping pills, or muscle relaxants. 4. Encourage the patient to eat at least 50% of every meal or she will have to restart her Megace. 5. Encourage the patient to eat some salty foods so that we may be able to decrease her salt pills. 6. Monitor the patient's atrial fibrillation with rapid ventricular response. 7. Monitor the patient's blood pressure. 8. Stress ulcer prophylaxis. 9. Decubitus precautions. 10. Continue physical therapy and occupational therapy. Job ID: [id number]
[2020-02-01 06:50] VITALS: BMI 17.9
[2020-02-01] MEDS: Acetaminophen 500 MG TAB PO PRN ×3 (08:24→21:11)
[2020-02-01] MEDS: Lidocaine 5% Patch TD SCH (08:24)
[2020-02-01] MEDS: Sotalol HCl 80 MG TAB PO SCH ×2 (08:26→21:11)
[2020-02-01] MEDS: Citalopram 20 MG TAB PO SCH (08:26)
[2020-02-01] MEDS: Nitrofurantoin Monohyd/M-Cryst 100 MG CAP PO SCH ×2 (08:26→21:11)
[2020-02-01] MEDS: Sodium Chloride 1 GM TAB PO SCH ×2 (08:27→21:13)
[2020-02-01 10:59] LABS: Troponin I 0.014 ng/mL (< 0.028)
--- NOTE | 2020-02-01 11:54 | PRG ---
DATE OF SERVICE: 02/01/2020 SUBJECTIVE: Ms. Holliday is an 79-year-old white female, who fell at home and had a C1-C2 neck fracture that was 1 cm offset. She went to the emergency room, was seen by Neurosurgery at [facility] and thought to be nonsurgical. She was placed in C-collar and transferred to inpatient rehab. Unfortunately, while she is at rehab, she fell a second time. This time, she had a 2 cm offset at the same fracture site, C1-C2. She was transferred to the hospital in [place], where supposedly a surgeon was supposed to be able to operate on her. It was found that he was unable to do that type of surgery and so she was transferred to [facility] in [facility], where Dr. Wai Lobo did a posterior C1-C2 laminectomy. Postoperatively, she was stabilized and eventually transferred to [facility] for physical therapy, occupational therapy, and pain management. The patient has actually been doing very well and has progressed fairly well, but over the last week to a week and a half, she has become more irritable, more demanding, and less compliant with her medications. She stopped taking the medications Thursday and Thursday and after significant discussions, we told her that we would have to at least start some essential medications, so she would not have RVR with her atrial fibrillation. The medications we stopped were the followin. Aspirin 81 mg. 2. Atorvastatin 20 mg. 3. Citalopram 40 mg daily. 4. Diltiazem 60 mg q.8 hours and we switched it to diltiazem 120 mg CD q.24 hours realizing that this was a lower dose, but she may have more difficulty with it. 5. Ferrous gluconate 325 daily. 6. Gabapentin 100 mg t.i.d. 7. Megace 400 mg b.i.d. and the patient agreed to eat 50% of each meal if we did this. 8. Magnesium oxide 200 mg b.i.d. The medications we continue were, 1. Diltiazem CD 120 mg daily. 2. Sotalol 80 mg daily. 3. Digoxin 0.125 daily. 4. Macrobid 100 mg b.i.d. for total of 7 days. 5. Salt 1 g two pills b.i.d. 6. Heparin 5000 units subcu q.8 hours. 7. Tylenol 500 mg q.4 hours p.r.n. Unfortunately, the patient went into atrial fibrillation, which she was chronically in, but rate controlled, but now she is not rate controlled and she has a rate of 120s to 140s. We will stop her diltiazem CD 120 and reinitiate diltiazem 60 mg now and q.6 hours p.o. The patient has agreed to eat 50% of each meal if we stopped her Megace, which we stopped on Thursday. This morning, she only ate 10% of her breakfast. OBJECTIVE: VITAL SIGNS: Today reveal blood pressure 148/75, pulse 104 to 124 to 140, respirations 18, O2 saturation 93%, T-max 98.1. GENERAL: This is a thin white female, who is becoming more compliant with her medications. She insists that she stay here until she gets better, but unfortunately she is hampering our ability to help her by refusing to take medications. HEENT: Reveals normocephalic and nontraumatic cranium. The pupils are equally round and reactive. Extraocular movements are intact. Nose and throat are dry. NECK: Supple without masses or bruits. CHEST: Clear to auscultation. No rales, no rhonchi, no wheezes, and no cough is heard. HEART: Reveals an irregularly irregular rate with a pulse between 120s to 140s. EKG reveals chronic atrial fibrillation, which is not with RVR. EKG reveals atrial fibrillation with a rate of 130. ABDOMEN: Soft and nontender without organomegaly. Normal bowel sounds are noted in all 4 quadrants. No rebound or guarding is noted. GENITOURINARY: Deferred. EXTREMITIES: Reveal no clubbing, cyanosis, or edema. NEUROLOGIC: The patient has no focal changes. ASSESSMENT: 1. Status post C1-C2 posterior fracture with post surgical laminectomy done by Dr. Wai Lobo in [place]. 2. Hypertension. 3. Coronary artery disease. 4. Anemia. 5. Hyponatremia and the patient continues to try to refuse her sodium this morning. 6. Chronic atrial fibrillation with rapid ventricular response. 7. Malnutrition with pre-albumin of 7. 8. Hyperlipidemia. 9. Generalized weakness. PLAN: 1. We will stop the patient's diltiazem CD 120 and start her on diltiazem immediate release 60 mg q.6 hours. 2. Encourage the patient to eat. 3. Encourage the patient to take her salt pills this morning. 4. Repeat labs tomorrow morning. 5. Troponin was done this morning, which was within normal limits at 0.014. 6. Encourage the patient to become more compliant. 7. The patient asked that I talk with her sister, Beatrice Chakraborty, who lives in [place] and I will call her shortly. 8. Continue to monitor the patient closely. 9. Monitor the patient's blood pressure. 10. Continue physical therapy and occupational therapy when the patient is stable. Job ID: [id number]
[2020-02-01] MEDS: Digoxin 0.125 MG TAB PO SCH (17:18)
[2020-02-01] MEDS: Lidocaine Patch Removal 1 EACH TOP SCH (21:12)
[2020-02-02] MEDS: Heparin 5,000 UNITS/ML VIAL SC SCH ×3 (05:37→21:31)
[2020-02-02 05:42] LABS: #Lymphocytes 0.8 thou/uL (1.20-3.40); #Monocytes 0.5 thou/uL (0.11-0.59); #Neutrophils 10.1 thou/uL (1.40-6.50); %Basophils 0.1 % (0.0-1.0); %Lymphocytes 6.9 % (21.0-51.0); %Monocytes 4.5 % (0.0-10.0); %Neutrophils 88.5 % (42.0-75.0); Hemoglobin 8.1 g/dL (12.0-16.0); Mean Corpuscular HGB CONC 33.8 g/dL (32.0-36.0); Mean Corpuscular Hemoglobin 28.8 pg (27.0-31.0); Mean Corpuscular Volume 85.3 fL (78.0-98.0); Mean Platelet Volume 5.1 fL (7.4-10.4); Platelet Count 394 thou/uL (130-400); RBC Distribution Width 15.1 % (11.5-14.5); White Blood Cell (WBC) Count 11.4 thou/uL (4.8-10.8)
[2020-02-02 06:00] LABS: Digoxin 1.01 ng/mL (0.8-2.0)
[2020-02-02 06:14] LABS: ALT (SGPT) 20 U/L (8-55); AST (SGOT) 16 U/L (5-34); Albumin 2.6 g/dL (3.4-4.8); Anion Gap 14 mmol/L (10-20); BUN (Urea Nitrogen) 17 mg/dL (9.8-20.1); Bilirubin, Total 0.7 mg/dL (0.2-1.2); Calc. Creatinine Clearance 47 mL/min (70-130); Calcium 9.2 mg/dL (7.8-10.44); Carbon Dioxide 21 mmol/L (23-31); Chloride 102 mmol/L (98-107); Estimated GFR-MDRD Greater than 90; Globulin 3.5 g/dL (2.4-3.5); Glucose 96 mg/dL (83-110); Magnesium 1.6 mg/dL (1.6-2.6); Protein, Total 6.1 g/dL (6.0-8.3); Sodium 133 mmol/L (136-145)
[2020-02-02] MEDS: Nitrofurantoin Monohyd/M-Cryst 100 MG CAP PO SCH ×2 (08:18→21:25)
[2020-02-02] MEDS: Sotalol HCl 80 MG TAB PO SCH ×2 (08:18→21:25)
[2020-02-02] MEDS: Lidocaine 5% Patch TD SCH (08:18)
[2020-02-02] MEDS: Citalopram 20 MG TAB PO SCH (08:18)
[2020-02-02] MEDS: Sodium Chloride 1 GM TAB PO SCH ×2 (08:19→21:25)
[2020-02-02] MEDS: Acetaminophen 500 MG TAB PO PRN ×4 (08:21→21:25)
[2020-02-02 11:50] LABS: Alkaline Phosphatase 69 U/L (40-110)
[2020-02-02] MEDS: Digoxin 0.125 MG TAB PO SCH (17:28)
[2020-02-02] MEDS ORDERED: Guaifenesin DM 100-10/5 ML UDCUP PO PRN (20:55)
[2020-02-02] MEDS: Lidocaine Patch Removal 1 EACH TOP SCH (21:38)
[2020-02-03] MEDS: Acetaminophen 500 MG TAB PO PRN ×3 (05:36→13:14)
[2020-02-03] MEDS: Heparin 5,000 UNITS/ML VIAL SC SCH ×3 (05:56→22:07)
[2020-02-03] MEDS: Lidocaine 5% Patch TD SCH (08:54)
[2020-02-03] MEDS: Nitrofurantoin Monohyd/M-Cryst 100 MG CAP PO SCH ×2 (08:54→22:07)
[2020-02-03] MEDS: Sodium Chloride 1 GM TAB PO SCH ×2 (08:54→22:07)
[2020-02-03] MEDS: Sotalol HCl 80 MG TAB PO SCH ×2 (08:55→22:06)
[2020-02-03] MEDS: Citalopram 20 MG TAB PO SCH (08:56)
[2020-02-03] MEDS: Digoxin 0.125 MG TAB PO SCH (17:13)
[2020-02-03] MEDS: Lidocaine Patch Removal 1 EACH TOP SCH (22:17)
[2020-02-04] MEDS: Heparin 5,000 UNITS/ML VIAL SC SCH ×3 (05:24→20:41)
[2020-02-04] MEDS: Acetaminophen 500 MG TAB PO PRN (08:41)
[2020-02-04] MEDS: Lidocaine 5% Patch TD SCH (08:41)
[2020-02-04] MEDS: Sodium Chloride 1 GM TAB PO SCH ×2 (08:41→20:39)
[2020-02-04] MEDS: Sotalol HCl 80 MG TAB PO SCH ×2 (08:42→20:39)
[2020-02-04] MEDS: Citalopram 20 MG TAB PO SCH (08:42)
[2020-02-04] MEDS: Nitrofurantoin Monohyd/M-Cryst 100 MG CAP PO SCH ×2 (08:42→20:38)
[2020-02-04] MEDS: Digoxin 0.125 MG TAB PO SCH (17:10)
[2020-02-04] MEDS: Lidocaine Patch Removal 1 EACH TOP SCH (20:39)
[2020-02-05] MEDS: Acetaminophen 500 MG TAB PO PRN ×2 (05:16→08:37)
[2020-02-05] MEDS: Heparin 5,000 UNITS/ML VIAL SC SCH ×3 (05:16→21:01)
[2020-02-05] MEDS: Citalopram 20 MG TAB PO SCH (08:37)
[2020-02-05] MEDS: Sodium Chloride 1 GM TAB PO SCH ×2 (08:38→21:01)
[2020-02-05] MEDS: Sotalol HCl 80 MG TAB PO SCH ×2 (08:38→21:00)
[2020-02-05] MEDS: Lidocaine 5% Patch TD SCH (08:39)
[2020-02-05] MEDS ORDERED: Loperamide HCl 2 MG CAP PO SCH (10:15)
[2020-02-05] MEDS: Digoxin 0.125 MG TAB PO SCH (16:22)
--- NOTE | 2020-02-05 20:47 | PRG ---
DATE OF SERVICE: 02/05/2020 SUBJECTIVE: The patient complains only of diarrhea in which she is on Lomotil for this. She denies any chest pain, shortness of breath, palpitations. OBJECTIVE: VITAL SIGNS: Temperature 97.7, pulse 86, respiratory rate 20, O2 saturations 95% on room air. LUNGS: Clear. CARDIAC: Shows an irregularly irregular rhythm. ABDOMEN: Soft and nontender. SKIN: Extremities show trace edema. NEUROLOGICAL: Shows diffuse weakness with no focal finding. ASSESSMENT: 1. Cervical laminectomy, diffuse weakness in cervical collar for C1-C2 fracture. 2. Atrial fibrillation with rate control, but no anticoagulation other than prophylactic subcu. 3. Hyponatremia, resolved. 4. Irritability and noncompliance, appears to be stable. PLAN: 1. Continue to stress compliance to medications. 2. Continue compliant with PT. 3. Continue stress, increased oral intake and protein intake. Job ID: [id number]
[2020-02-05] MEDS: Lidocaine Patch Removal 1 EACH TOP SCH (21:00)
[2020-02-06] MEDS: Heparin 5,000 UNITS/ML VIAL SC SCH ×3 (05:32→20:46)
[2020-02-06] MEDS: Sodium Chloride 1 GM TAB PO SCH ×2 (08:37→20:46)
[2020-02-06] MEDS: Lidocaine 5% Patch TD SCH (08:38)
[2020-02-06] MEDS: Citalopram 20 MG TAB PO SCH (08:38)
[2020-02-06] MEDS: Sotalol HCl 80 MG TAB PO SCH ×2 (08:38→20:46)
--- NOTE | 2020-02-06 09:26 | PRG ---
DATE OF SERVICE: 02/04/2020 SUBJECTIVE: The patient lying in bed with no specific complaints other than intermittent diarrhea, but she does not wish any medications for that at this time and is stating that she wishes to only take the medicines as she desires and Dr. Ibrahim has informed me to let her take the medicine the way she wants. OBJECTIVE: VITAL SIGNS: Temperature 97.7, pulse 86, respirations 20, O2 saturations 95% on room air. LUNGS: Clear. NECK: In C-collar. NEUROLOGICAL: No focal finding. CARDIAC: Irregularly irregular rhythm. ABDOMEN: Soft and nontender. SKIN/EXTREMITIES: No edema, clubbing, or cyanosis. ASSESSMENT: 1. Cervical laminectomy for C1-C2 fracture, in collar. 2. Hyponatremia. 3. Chronic atrial fibrillation with rapid ventricular response. 4. Malnutrition. 5. Deconditioning with refusal of therapy. PLAN: Continue diltiazem immediate release 60 mg every 6 hours. Encouraged the patient to eat and to exercise. Discuss discharge planning with Dr. Ibrahim and gearcase assembler. Job ID: [id number]
--- NOTE | 2020-02-06 11:32 | PRG ---
DATE OF SERVICE: 02/06/2020 SUBJECTIVE: Ms. Holliday is an 79-year-old white female, who fell at home and had a C1-C2 neck fracture with a 1 cm offset. She went to [facility], where she was seen by Neurosurgery and that was thought to be nonsurgical. She was placed in a C-collar and transferred to inpatient rehab. Unfortunately in rehab , she fell a second time. At this time, she had 2 cm offset of the same fracture. She states she was transferred to [place], [place], where supposedly a surgeon was supposed to do her operation. Unfortunately, she states that he was able to do that. He transferred her to [facility], where Dr. Wai Lobo did a posterior C1-C2 laminectomy. Postoperatively, she was stabilized and eventually transferred to [facility]. She is here for physical therapy, occupational therapy, pain management, and malnutrition. The patient has started up doing very well, but then decided that she did not want to eat and was not hungry. She was depressed. We tried to increase her medications for depression, but then she decided she did not want to take any of her medications. We sat down with her at length impaired through her medications for just the essential medications. On , she refused physical therapy and occupational therapy and states she just doesn't want to do it anymore. I had a long talk with her and called her sister, Jemima Valdovinos and had a long discussion about transferring her either to a nursing care facility or home with 24-hour care. I had a long discussion with Ms. Holliday on that she would have the weekend to think about and we would get things set up this Thursday. When I walked in, the patient seems much weaker and states she has been eating, but in actuality. On Thursday, she had 40% of breakfast, 15% of lunch, 10% of supper. On Thursday, she had 25% of breakfast, 25% of lunch, 25% of supper. Yesterday, she had 10% of breakfast, 25% of lunch, and 10% of supper. Her labs done last reveal she is slightly more anemic, but mainly her pre-albumin was down to 9 and needs to be 14. She also refused her medications on night. The patient is extremely weak this morning and states she really does not want to think about having to move or go anywhere. I told her that she would need to most likely talk with her sister about making arrangements since she is not able to do physical therapy or occupational therapy here and/or not wanting to do it. The patient is noted to be a full code. When we discussed making her DNR going to hospice, she said she did not want to think about that at all at this time. OBJECTIVE: GENERAL: This is a well-developed, well-nourished, but thin white female, but states she just is tired and does not know what to do. HEENT: Reveals normocephalic and nontraumatic cranium. Pupils are equally round and reactive. Extraocular movements are intact. Nose and throat are dry. NECK: Supple without masses, nodes, or bruits. CHEST: Clear to auscultation. No rales, rhonchi, wheezes, or cough is heard. HEART: Reveals irregularly irregular rate. Pulse is in the 90s. ABDOMEN: Soft and nontender. Normal bowel sounds noted. No rebound or guarding is noted. : Deferred. EXTREMITIES: Reveal no clubbing, cyanosis, or edema. NEUROLOGIC: The patient has generalized weakness. No focal changes. ASSESSMENT: 1. Status post C1-C2 posterior fracture with postsurgical laminectomy done by Dr. Wai Lobo in [place]. 2. Hypertension. 3. Coronary artery disease. 4. Anemia. 5. Hyponatremia with the last sodium of 133. 6. Chronic atrial fibrillation with an episode of rapid ventricular response last Thursday or . 7. Now, she has malnutrition with pre-albumin of 9. 8. Hyperlipidemia. 9. Generalized weakness. 10. Noncompliance with medications and refusal of therapy. PLAN: 1. The patient is being counseled about and questioned about moving to a nursing care facility versus her home. 2. She states she is not sure what she wants to do, but she does want to talk to her sister, Beatrice Valdovinos about that. 3. Encourage the patient to continue taking her present medications. 4. Encourage the patient to try to eat a little bit better and she does not eat anything at this morning. 5. We will repeat labs tomorrow morning. 6. Continue to monitor the patient closely and continue to monitor the patient's blood pressure. 7. Case management for transfer of the patient to the facility of her choice. I talked at length about this patient with the powerhouse mechanic, Mitzi, and we will try to coordinate things. Job ID: [id number] MTDD
[2020-02-06] MEDS: Digoxin 0.125 MG TAB PO SCH (17:35)
[2020-02-06] MEDS: Acetaminophen 500 MG TAB PO PRN (20:46)
[2020-02-06] MEDS: Lidocaine Patch Removal 1 EACH TOP SCH (20:46)
[2020-02-07] MEDS: Heparin 5,000 UNITS/ML VIAL SC SCH ×3 (05:21→20:52)
[2020-02-07 05:55] LABS: #Monocytes 0.7 thou/uL (0.11-0.59); #Neutrophils 13.9 thou/uL (1.40-6.50); %Basophils 0.3 % (0.0-1.0); %Lymphocytes 6.1 % (21.0-51.0); %Monocytes 4.6 % (0.0-10.0); Hemoglobin 8.2 g/dL (12.0-16.0); Mean Corpuscular HGB CONC 32.4 g/dL (32.0-36.0); Mean Corpuscular Hemoglobin 28.1 pg (27.0-31.0); Mean Corpuscular Volume 86.8 fL (78.0-98.0); Mean Platelet Volume 5.4 fL (7.4-10.4); Platelet Count 403 thou/uL (130-400); RBC Distribution Width 16.5 % (11.5-14.5); Red Blood Cell (RBC) Count 2.93 mill/uL (4.20-5.40); White Blood Cell (WBC) Count 15.6 thou/uL (4.8-10.8)
[2020-02-07 06:02] LABS: Digoxin 0.67 ng/mL (0.8-2.0)
[2020-02-07 06:10] LABS: ALT (SGPT) 20 U/L (8-55); AST (SGOT) 15 U/L (5-34); Albumin 2.6 g/dL (3.4-4.8); Alkaline Phosphatase 79 U/L (40-110); Anion Gap 14 mmol/L (10-20); BUN (Urea Nitrogen) 14 mg/dL (9.8-20.1); Bilirubin, Total 1.5 mg/dL (0.2-1.2); Calc. Creatinine Clearance 50 mL/min (70-130); Calcium 9.3 mg/dL (7.8-10.44); Carbon Dioxide 21 mmol/L (23-31); Chloride 101 mmol/L (98-107); Estimated GFR-MDRD Greater than 90; Globulin 3.6 g/dL (2.4-3.5); Glucose 87 mg/dL (83-110); Potassium 4.2 mmol/L (3.5-5.1); Protein, Total 6.2 g/dL (6.0-8.3); Sodium 132 mmol/L (136-145)
[2020-02-07] MEDS: Lidocaine 5% Patch TD SCH (08:51)
[2020-02-07] MEDS: Citalopram 20 MG TAB PO SCH (08:51)
[2020-02-07] MEDS: Sotalol HCl 80 MG TAB PO SCH ×2 (08:51→20:52)
[2020-02-07] MEDS: Sodium Chloride 1 GM TAB PO SCH ×2 (08:52→20:48)
--- NOTE | 2020-02-07 12:01 | PRG ---
DATE OF SERVICE: 02/07/2020 HISTORY OF PRESENT ILLNESS: Ms. Holliday is an 79-year-old white female. Unfortunately, she fell at home and had a C1-C2 neck fracture with a 1 cm offset. She went to [facility] and was seen by Neurosurgery and thought to be nonsurgical. She was placed in a C-collar and transferred to inpatient rehab. Unfortunately, while she was at rehab, she fell again. She had at this time had a 2 cm offset at the same area. She states that she was transferred to a hospital in [place], [place], where the surgeon was unable to do that type of operation to stabilize that fracture. She was then transferred to [facility], where Dr. Zane Lobo did a posterior C1-C2 laminectomy. Postoperatively, she was stabilized and then transferred down to [facility] for physical therapy, occupational therapy, pain management, and management of her malnutrition. While she was here, she was on multiple narcotics, which were gradually decreased and weaned her down to regular Tylenol and she was on Megace. She was doing fairly well and began to walk and then she decided that she did not want to take all the medications she was on. She basically refused medications, so we weaned her down to the minimal medication, and since then she has also stopped eating and has not done very well. Yesterday, she ate no breakfast, ate no lunch, had 5 bites of supper, and refused Enlive and Ensure. Today, she is weak, but complains of her right knee feeling very tender and very sore. She has refused therapy for the last several days, although Therapy did see her this morning trying to get her to mobilize. She was unable to basically stand or take any steps. Therapy did contact me and stated that they are going to take her off service because she is unable to participate. I did talk with the patient today. She states she is just not hungry. She does not want to do therapy. I told her since she is unable to do therapy, she would have to be transferred to a different facility because she is here for her therapy alone. assistant plant manager has been in touch with her grandson, Jesus, and he would like to move her to [facility] in [place]. They did contact [facility] with a decline in accepting her. OBJECTIVE: VITAL SIGNS: Today, reveal blood pressure 159/69, pulse 80, respirations 18, O2 saturation 93% on room air, and T-max 98.7. LABORATORY DATA: Today, reveals the patient has bumped her white count to 15,600 with hemoglobin 8.2, hematocrit 25.4, and a platelet count of 403,000. Her sodium is stable at 132 and potassium 4.2. Her BUN is 14 and creatinine is 0.54 with a GFR greater than 90. Her BNP is down from 230 down to 181. Pre-albumin is still 9. Her dig level was slightly down from 1.01 down to 0.67. PHYSICAL EXAMINATION: GENERAL: This is a well-developed, very thin, white female, states she just does not feel well and does not want to eat or participate in therapy at this time. She is agreeable to being transferred to a different nursing care facility. Her grandson, Jesus, would preferred to be in the [facility] area. We are working on that since the patient is not participating in therapy anymore. ASSESSMENT: 1. Leukocytosis, unknown etiology. We will do a urinalysis to make sure she did not have a repeat urinary tract infection. She has no cough, cold, or congestion. 2. Status post C1-C2 posterior fracture, posterior surgical laminectomy done by Dr. Wai Lobo in [place]. 3. Hypertension. 4. Coronary artery disease. 5. Anemia. 6. Hyponatremia with a last sodium 132. 7. Chronic atrial fibrillation with an episode of rapid ventricular response, but presently rate controlled. 8. Malnutrition and the patient is refusing to eat now. 9. Hyperlipidemia. 10. Generalized weakness. 11. Noncompliance with medication and refusal of therapy. PLAN: 1. The patient is being counseled and we are looking for a nursing care facility that would be acceptable to her and her grandson. 2. The classification case manager also talked with the patient's older sister, her name is, Jemima Valdovinos. 3. Encourage the patient to continue taking her medicines. 4. Encourage the patient to try to eat and not refuse all meals. 5. Continue to monitor the patient closely and monitor her blood pressure. 6. Case management for transfer the patient to the facility of her choice. Job ID: [id number]
[2020-02-07 12:06] LABS: Bilirubin Small (Negative); Blood, Urine Negative (Negative); Clarity Slightly Cloudy (Clear); Glucose, Urine (Dipstick) Negative (Negative); Leukocyte Small (Negative); Nitrite Negative (Negative); Protein, Urine (Dipstick) Negative (Neg-Trace); Urobilinogen > or = 8.0 mg/dL (Less than 2)
[2020-02-07 12:10] LABS: RBC/HPF 0-3 HPF (0-3)
[2020-02-07 12:11] LABS: Bacteria/HPF 1+ HPF (None Seen); Yeast-Budding 1+ HPF (None Seen)
[2020-02-07] MEDS: Digoxin 0.125 MG TAB PO SCH (17:29)
[2020-02-07] MEDS: Lidocaine Patch Removal 1 EACH TOP SCH (20:52)
[2020-02-08] MEDS: Heparin 5,000 UNITS/ML VIAL SC SCH ×3 (05:14→21:52)
[2020-02-08] MEDS: Lidocaine 5% Patch TD SCH (09:15)
[2020-02-08] MEDS: Citalopram 20 MG TAB PO SCH (09:15)
[2020-02-08] MEDS: Acetaminophen 500 MG TAB PO PRN (09:33)
[2020-02-08] MEDS: Sodium Chloride 1 GM TAB PO SCH ×3 (09:34→20:35)
[2020-02-08] MEDS: Sotalol HCl 80 MG TAB PO SCH ×2 (09:34→20:32)
[2020-02-08] MEDS: Loperamide HCl 2 MG CAP PO PRN (12:38)
[2020-02-08] MEDS ORDERED: Sodium Chloride 0.9% 500 ML IVPB SCH (13:00)
--- NOTE | 2020-02-08 15:05 | PRG ---
DATE OF SERVICE: SUBJECTIVE: Ms. Holliday is an 79-year-old very pleasant white female, who fell at home and had a C1-C2 neck fracture with a 1 cm offset. She arrived to [facility], seen by Neurosurgery and was found to be a nonsurgical candidate. She was placed in C-collar and transferred to inpatient rehab. Unfortunately, while she is at rehab, she fell again. This time she had a 2 cm displacement of the same fracture. She tells a story that she was transferred to a hospital in [place], [place], where a surgeon was supposed to operate on that type of fracture. She was told that he could not do that type of fracture, and then she was transferred to [facility]. Dr. Wai Lobo did a posterior C1-C2 laminectomy successfully on her. Postoperatively, she was stabilized and transferred to [facility] for physical therapy, occupational therapy, and pain management. When the patient came here, she was on multiple narcotics, high dose and she was gradually decreased down to Tylenol, which has now controlled her pain. She was on Megace, but about a week ago, she decided she wanted to stop taking all of her medications. At that time, it was very important that she take especially her atrial fib medicine, so we bargained with her and she agreed to take three or four different medically necessary medications; however, she stopped. Over the weekend, she decided that she did not want to eat or drink, and she refused her therapy sessions last , Thursday, and Thursday. She got very weak because of refusing her therapy. She is not able to stay here. The patient has been in contact with her case resolution specialist with her older sister, Jemima Valdovinos, and her grandson, Jesus. They have decided that they will bring her to [facility], and they did have a bed opened up today, so she will go tomorrow. OBJECTIVE: VITAL SIGNS: Today reveal blood pressure 140/62, 133/59, and 110/78, pulse 80 to 112, respirations 19 to 22, O2 saturation 95% to 96% on room air, and T-max 97.8 to 99.8. GENERAL: This is a much more awake and alert white female because the nurse has been pretty much forcing liquids and fluids down her. HEENT: Normocephalic and nontraumatic cranium. Pupils equally round and reactive. Extraocular movements are intact. Nose and throat are slightly dry. NECK: Supple without masses, nodes, or bruits. CHEST: Clear to auscultation. No rales, rhonchi, or wheezes are heard. HEART: Reveals an irregularly irregular rate and rhythm because she has chronic atrial fib, but it is rate controlled. ABDOMEN: Soft and nontender without organomegaly. Normal bowel sounds are noted. No rebound or guarding is noted. Noted to be scaphoid. GENITOURINARY: Deferred. EXTREMITIES: Reveal no clubbing, cyanosis, or edema. ASSESSMENT: 1. Leukocytosis, unknown etiology. The patient's white count was 15,000. Urinalysis was unremarkable, and the patient has no respiratory cough, cold, or congestion. 2. Status post C1-C2 posterior fracture with fusion and laminectomy done by Dr. Wai Lobo at [facility] in [facility]. 3. Hypertension, well controlled. 4. Coronary artery disease. 5. Anemia. 6. Hyponatremia with the last sodium of 132. 7. Chronic atrial fibrillation with no more episodes of rapid ventricular response, but rate controlled. 8. Malnutrition. The patient is being encouraged to eat again, but she still refuses her Megace. 9. Hyperlipidemia. 10. Noncompliance with medication, refusal of therapy. 11. Generalized weakness. PLAN: 1. The patient is feeling much better today, but we will still give her a 500 mL bolus of normal saline to kind of perk her up and get her where she can attempt to eat better and do therapy again. 2. manager front has discussed with the patient and her older sister and her grandson, and arrangements have been made to transfer the patient to [facility] tomorrow. 3. Continue present medications. 4. Continue to monitor the patient's blood pressure closely. 5. Continue to encourage the patient to be compliant with medication and therapy. Job ID: [id number]
[2020-02-08] MEDS: Digoxin 0.125 MG TAB PO SCH (17:46)
--- NOTE | 2020-02-08 20:17 | RAD ---
CHEST ONE VIEW: 02/08/20 HISTORY: Aspiration. COMPARISON: Radiograph of the chest 2010. FINDINGS: There is dense left lower lobe air space opacity. No pneumothorax. Dual lead pacer leads are in good position. Scoliotic change of the lumbar spine. IMPRESSION: Dense left lower lobe opacity concerning for infection/aspiration with layering parapneumonic effusio n. POS: HOME
[2020-02-08] MEDS: Lidocaine Patch Removal 1 EACH TOP SCH (21:55)
[2020-02-09] MEDS: Heparin 5,000 UNITS/ML VIAL SC SCH ×2 (06:13→14:00)
[2020-02-09] MEDS: Citalopram 20 MG TAB PO SCH (08:34)
[2020-02-09] MEDS: Lidocaine 5% Patch TD SCH (08:34)
[2020-02-09] MEDS: Sotalol HCl 80 MG TAB PO SCH (08:35)
[2020-02-09] MEDS: Sodium Chloride 1 GM TAB PO SCH (08:35)
[2020-02-09] MEDS ORDERED: Cefdinir 300 MG CAP PO SCH (09:00)
--- NOTE | 2020-02-09 13:03 | DIS ---
DATE OF ADMISSION: 12/27/2019 DATE OF DISCHARGE: 02/09/2020 HOSPITAL COURSE: Ms. Holliday is a very pleasant 79-year-old white female, who was at home initially when she fell and had a C1-C2 neck fracture. She had a 1 cm offset. She presented herself to [facility] and was seen by Neurosurgery and found to be a nonsurgical candidate. She was placed in a C-collar and transferred to inpatient rehab. Unfortunately, at rehab, she fell, and at this time had a 2 cm displacement of the same C1-C2 fracture. She tells me then that she was transferred to the hospital in [place], although I have no records from there. Apparently, the surgeon there was supposed to operate on that type of fracture, but was unable to do that. She was then transferred to [facility], where Dr. Wai Lobo did a posterior C1-C2 laminectomy fusion on her. Postoperatively, she was stabilized and transferred to [facility] for physical therapy, occupational therapy, and pain management. When the patient was transferred here, she was on oxycodone, which we then decreased to hydrocodone, which we then decreased to Tylenol No. 3, which was then decreased to tramadol, and now she is off all narcotics. Approximately a week and a half ago, she decided that she was taking too many medications, and so she started refusing all of her medications. She did have diltiazem, which she refused and she went into atrial fibrillation with RVR. We reinstated that, but stopped majority of most of her medications because of her refusal to take medications. She has also had significant difficulty with dysphagia and Speech Therapy saw her, but she refused PEG tube placement and states she would take her chances with pureed food. The patient has been refusing therapy since last week, so she does not qualify to stay at this setting anymore. After significant contemplation, the patient's grandson and the patient decided that she would benefit from a nursing care facility in [place], so she is being accepted and transferred to [facility]. She is ready for discharge today. PRESENT MEDICATIONS: Reveal the patient presently is on the following; 1. Cefdinir 300 mg twice a day for 10 days. 2. Citalopram 40 mg every morning. 3. Digoxin 0.125 mg every evening. 4. Diltiazem 60 mg p.o. q.6 hours. 5. Lidoderm patch to neck and/or right knee p.r.n. 6. Sodium chloride 2 g p.o. b.i.d. 7. Sotalol 80 mg q.12 hours. The patient is not on multiple other medications including her magnesium oxide, her pantoprazole, her atorvastatin, her aspirin, and now she is wanting to refuse her heparin 5000 mg subcu q.8. Previously, she was not on an anticoagulant secondary to her weakness and falls, but when she was admitted to the hospital, that was restarted. PHYSICAL EXAMINATION: VITAL SIGNS: Reveal the patient's blood pressure is 115 to 144 systolic and 56 to 67 diastolic; respirations are 16 to 20, and O2 saturation is 92% to 95% on room air. The patient's pulse is 76 to 99. T-max is 98.0. GENERAL: This is a well-developed, well-nourished, very thin 79-year-old white female, who states she is doing good and she is glad she is going to [place], so she can see her grandson and her nephew, who is supposed to be flying in on Thursday. HEENT: Normocephalic and nontraumatic cranium. Pupils are equally round and reactive. Extraocular movements are intact. Nose and throat are still dry. NECK: Supple with a C-collar in place. No masses, nodes, or bruits are noted. The patient typically has a Lidoderm patch on over her incision site, which she states makes her feel better. CHEST: Clear to auscultation. No rales. No rhonchi. The patient does have some bilateral crackles, but they clear with cough. HEART: Reveals an irregularly irregular rate and rhythm, and she has chronic atrial fibrillation, but is rate controlled since she has been back on her diltiazem. ABDOMEN: Scaphoid, soft, nontender without organomegaly. Normal bowel sounds are noted. No rebound or guarding is noted. The patient describes some diarrhea yesterday before, but she states it is resolved now. GENITOURINARY: Deferred. EXTREMITIES: Reveal no clubbing, cyanosis, or edema, just generalized weakness. The patient does complain of some pain in the right knee and we did x-ray that and we did a gout test, in which her uric acid was 2.9. She has a Lidoderm patch on that. She states that makes her feel much better. IMAGING STUDIES: Chest x-ray reveals a left lower lobe density, which may be the result of some aspiration since she pretty much demands to eat what she wants and when she wants it. Unfortunately, the patient has not been eating very well, as matter of fact over the last 3 days eating about 25% of one meal each day. The patient states she ate well this morning and it was not marked on her dietary sheet yet. ASSESSMENT: 1. Status post C1-C2 posterior fracture with fusion laminectomy done by Dr. Wai Lobo at [facility] at the end of sometimes in January 2020. 2. Hypertension, well controlled. 3. Anemia, stable. 4. Hyponatremia, has been stable. 5. Coronary artery disease. 6. Chronic atrial fibrillation with no more episodes of rapid ventricular response, but rate controlled on diltiazem 60 q.6 hours. 7. Malnutrition. The patient is still not eating very well and she has refused her Megace and does not want to start taking it because she states it tastes bad. 8. Hyperlipidemia. 9. Noncompliance with medications, at times refusing most medications and now refusing her therapy all the time, and so they have dropped her off therapy. 10. Leukocytosis, most likely secondary to some aspiration, but she is not coughing. 11. Generalized weakness. PLAN: 1. The patient states she feels much better today and much more talkative today. She states she is ready to go to [facility] because she wants to be able to visit with her grandson and her nephew is flying in from [facility] on Thursday. 2. Apparently, arrangements have been made and the patient was accepted at [facility] for discharge today. 3. Continue present medications. 4. The patient has had Omnicef 300 mg added b.i.d. for the next 10 days for the right lower lobe infiltrate. 5. Continue to encourage the patient to be compliant with medication, and hopefully, she will eat and start her therapy again. 6. If the patient does not do this, most likely, she will become a candidate for hospice soon. Spent more than 45 minutes discharging this patient and reviewing, ordering and in discussion with her care1 Job ID: [id number] MTDD
[2020-02-09 16:47] VITALS: BP 137/77; TEMP 98.8
--- NOTE | 2020-02-11 01:06 | PQF ---
Angelica Holliday C. HENRY MD [id number] CLINICAL DOCUMENTATION CLARIFICATION FORM: POST DISCHARGE Addendum to original discharge summary date: ___2-1-2537 Late entry note date: _02/15/2020 Date: 02/11/2020 ATTN: Nidhi AMOR MD Please exercise your independent, professional judgment in responding to the clarification form. Clinical indicators are provided on the bottom of this form for your review Please check appropriate box(s): [ X ] Protein Calorie Malnutrition: [ ] Mild [ X ] Moderate [ ] Severe [ ] Other Malnutrition (please specify) __ [ ] Other diagnosis [ ] Unable to determine In addition, please specify: Present on Admission (POA): [ ] Yes [ X ] No [ ] Unable to determine CLINICAL INDICATORS - SIGNS / SYMPTOMS / LABS - Malnutrition- DS, 02/08, Nidhi AMOR MD - The patient is still not eating very well and she has refuse Megace-DS, 02/08 , Nidhi AMOR MD - Generalized Weakness- DS, 02/08, Nidhi AMOR MD - had significant difficulty with dysphagia- DS, 02/08, Nidhi AMOR MD - Calculated BMI: 17.9- FNS assessment, 02/02 - Albumin: 3.32L on 12/27, 2.8L on 01/23, 2.6L on 02/06- Laboratory report - Total protein: 6.0 on 12/27, 5.8L on 01/26- Laboratory report RISK FACTORS - Advanced age 79 - s/p C-C2 posterior fracture with fusion laminectomy-DS, 02/08, Nidhi AMOR MD - Refuse PEG tube placement-DS, 02/08, Nidhi AMOR MD TREATMENT: - Ensure Enlive- 01/02 to 02/02 - Sodium chloride.IV- DEC, 01/26 Moderate Malnutrition (in acute illness) Energy Intake: <75% of estimated energy requirement for > 7 days Weight Loss: 1-2%/1 week; 5%/ 1 month; 7.5%/3 months Other: mild body fat loss; mild muscle mass loss; mild fluid accumulation; Severe Malnutrition (in acute illness) Energy Intake: < 50% of estimated energy requirement for > 5 days Weight Loss: >1-2%/1 week; >5%/1 month; >7.5%/3 months Other: moderate body fat loss; moderate muscle mass loss; moderate- severe fluid accumulation; measurably reduced hogshead liner strength Moderate Malnutrition (in chronic illness) Energy Intake: <75% of estimated energy requirement for >1 month Weight Loss: 5%/1 month; 7.5%/3 months; 10%/6 months; 20%/1 year Other: mild body fat loss; mild muscle mass loss; mild fluid accumulation Severe Malnutrition (in chronic illness) Energy Intake: <75% of estimated energy requirement for >1 month Weight Loss: >5%/1 month; >7.5%/3 months; >10%/6 months; >20%/1 year Other: severe body fat loss; severe muscle mass loss; severe fluid accumulation ; measurably reduced hogshead liner strength (This form is maintained as a part of the permanent medical record) 2014 [employer]. All Rights Reserved [email or web address]
== END 2020-02-09 16:35 | DRG 559 ==
LOC: NAV ACUTE 16:58
PROVIDERS: ADMIT Family Medicine; ATTEND Family Medicine
DX: Z47.89 Encounter for other orthopedic aftercare (principal); G93.41 Metabolic encephalopathy; S12.100A Unspecified displaced fracture of second cervical vertebra, initial encounter for closed fracture; I48.20 Chronic atrial fibrillation, unspecified; E46 Unspecified protein-calorie malnutrition; E87.1 Hypo-osmolality and hyponatremia; Z68.1 Body mass index [BMI] 19.9 or less, adult; E44.0 Moderate protein-calorie malnutrition; D64.9 Anemia, unspecified; I10 Essential (primary) hypertension; I25.10 Atherosclerotic heart disease of native coronary artery without angina pectoris; I73.9 Peripheral vascular disease, unspecified; R29.6 Repeated falls; Z96.653 Presence of artificial knee joint, bilateral; E78.5 Hyperlipidemia, unspecified; R53.81 Other malaise; Z86.73 Personal history of transient ischemic attack (TIA), and cerebral infarction without residual deficits; Z79.01 Long term (current) use of anticoagulants; Z87.440 Personal history of urinary (tract) infections; Z95.1 Presence of aortocoronary bypass graft; Z95.0 Presence of cardiac pacemaker; Z98.42 Cataract extraction status, left eye; Z98.41 Cataract extraction status, right eye; Z88.0 Allergy status to penicillin; Z88.2 Allergy status to sulfonamides; Z88.8 Allergy status to other drugs, medicaments and biological substances; Z91.14 Patient's other noncompliance with medication regimen
CPT/HCPCS: 36415; 71045; 72040; 80048; 80053; 80162; 81001; 82607; 82728; 82746; 83540; 83550; 83605; 83735; 83880; 84134; 84443; 84484; 84550; 85025; 87086; J1644; J7030; L0120; Q0162